=== PATIENT | male | born 1940 | race Caucasian/White ===

== ENCOUNTER 2017-04-05 06:25 | Emergency (ER) | payer OTHER ==
[2017-04-05 06:58] VITALS: BMI 24.2
[2017-04-05] MEDS ORDERED: ONDANSETRON 4 MG/2 ML VIAL IVPB ONE (07:36)
[2017-04-05] MEDS ORDERED: SODIUM CHLORIDE 1,000 ML IV STA (07:36)
--- NOTE | 2017-04-05 07:37 | PDOC ---
History of Present Illness - General History Source: Patient, Spouse Exam Limitations: No Limitations - History of Present Illness Initial Comments: 04/05/17 08:37 The patient is a 77 year old male, with significant past medical history of HTN , DM, BPH, and kidney stones, who presents to the emergency room complaining of weakness, lightheadedness, and nausea starting this morning approximately 5 hours ago. The patient explains the he felt lightheaded like he was going to pass out,which brought him into the ED. He states that he does not feel like the room is spinning. Denies fever, chills, vomiting. Denies sick contacts, recent illness. Denies any urinary symptoms. Denies chest pain, SOB. PCP: Dr. Clementine Reyna <Malia Lawson - Last Filed: 04/05/17 08:37> - General History Source: Patient Exam Limitations: No Limitations <Theodore Noriega - Last Filed: 04/05/17 10:31> - General Chief Complaint: Lightheaded Stated Complaint: ABD PAIN,DIZZINESS Time Seen by Provider: 04/05/17 07:19 Past History <Malia Lawson - Last Filed: 04/05/17 08:37> - Past Medical History Anemia: No Asthma: No Cancer: No Cardiac Disorders: No CVA: No COPD: No CHF: No Dementia: Yes (JUST STARTING) Diabetes: Yes GI Disorders: No Disorders: Yes (KIDNEY STONES) HTN: Yes Hypercholesterolemia: Yes Kidney Stones: Yes Liver Disease: No Seizures: No Thyroid Disease: No - Surgical History Abdominal Surgery: No Appendectomy: No Cardiac Surgery: No Cholecystectomy: No Lung Surgery: No Neurologic Surgery: No Orthopedic Surgery: No - Suicide/Smoking/Psychosocial Hx Smoking History: Never smoked Have you smoked in the past 12 months: No Information on smoking cessation initiated: No Hx Alcohol Use: No Drug/Substance Use Hx: No Substance Use Type: None Hx Substance Use Treatment: No <Theodore Noriega - Last Filed: 04/05/17 10:31> - Past Medical History Allergies/Adverse Reactions: Allergies Allergy/AdvReac Type Severity Reaction Status Date / Time No Known Drug Allergies Allergy Verified 04/05/17 06:56 Home Medications: Ambulatory Orders Aspirin [ASA -] 81 mg PO DAILY 03/30/15 Atenolol [Tenormin] 50 mg PO DAILY 03/30/15 Cyanocobalamin [Vitamin B12 -] 1,000 mcg PO DAILY 03/30/15 Insulin Glargine,Hum.rec.anlog [Lantus (10mL VIAL) -] 30 units SQ HS 03/30/15 Losartan Potassium 100 mg PO DAILY 03/30/15 Ubidecarenone/Vit E Acetate [Co Q-10 100 mg Softgel] 1 each PO DAILY 03/30/15 Donepezil HCl [Aricept] 23 mg PO DAILY 01/19/16 Ezetimibe/Simvastatin [Vytorin 10-20 mg Tablet] 1 tab PO DAILY 01/19/16 Memantine HCl [Namenda -] 5 mg PO DAILY 01/19/16 Saxagliptin HCl [Onglyza] 2.5 mg PO DAILY 01/19/16 Allopurinol [Zyloprim -] 100 mg PO DAILY 04/05/17 Ondansetron HCl [Zofran] 4 mg PO Q8H PRN #12 tablet 04/05/17 Review of Systems - Review of Systems Able to Perform ROS?: Yes Comments:: 04/05/17 08:51 GENERAL/CONSTITUTIONAL: +lightheadedness, weakness. No fever or chills. HEAD, EYES, EARS, NOSE AND THROAT: No change in vision. No ear pain or discharge. No sore throat. CARDIOVASCULAR: No chest pain or shortness of breath. RESPIRATORY: No cough, wheezing, or hemoptysis. GASTROINTESTINAL: +nausea. No vomiting, diarrhea or constipation. GENITOURINARY: No dysuria, frequency, or change in urination. MUSCULOSKELETAL: No joint or muscle swelling or pain. No neck or back pain. SKIN: No rash NEUROLOGIC: No headache, vertigo, loss of consciousness, or change in strength/ sensation. ENDOCRINE: No increased thirst. No abnormal weight change. HEMATOLOGIC/LYMPHATIC: No anemia, easy bleeding, or history of blood clots. ALLERGIC/IMMUNOLOGIC: No hives or skin allergy. <Malia Lawson - Last Filed: 04/05/17 08:37> *Physical Exam - Vital Signs Last Vital Signs Temp Pulse Resp BP Pulse Ox 67 14 117/64 100 04/05/17 06:56 04/05/17 06:56 04/05/17 06:56 04/05/17 06:56 - Physical Exam Comments: 04/05/17 08:51 GENERAL: Awake, alert, and fully oriented, in no acute distress HEAD: No signs of trauma EYES: PERRLA, EOMI, sclera anicteric, conjunctiva clear ENT: Auricles normal inspection, hearing grossly normal, nares patent, oropharynx clear without exudates. Moist mucosa NECK: Normal ROM, supple, no lymphadenopathy, JVD, or masses LUNGS: Breath sounds equal, clear to auscultation bilaterally. No wheezes, and no crackles HEART: Regular rate and rhythm, normal S1 and S2, no murmurs, rubs or gallops ABDOMEN: Soft, nontender, normoactive bowel sounds. No guarding, no rebound. No masses EXTREMITIES: Normal range of motion, no edema. No clubbing or cyanosis. No cords, erythema, or tenderness NEUROLOGICAL: Cranial nerves II through XII grossly intact. Normal speech, normal gait SKIN: Warm, Dry, normal turgor, no rashes or lesions noted. <Malia Lawson - Last Filed: 04/05/17 08:37> - Vital Signs Last Vital Signs Temp Pulse Resp BP Pulse Ox 67 14 117/64 100 04/05/17 06:56 04/05/17 06:56 04/05/17 06:56 04/05/17 06:56 <Theodore Noriega - Last Filed: 04/05/17 10:31> Heart Score/ECG Review #1 ECG reviewed & interpreted by me at: 07:40 04/05/17 08:31 NSR 89, no std/gloria, T wave flat I, TWI avL. ST flat V4-V6, QTC 473 msec <Theodore Noriega - Last Filed: 04/05/17 10:31> ED Treatment Course - LABORATORY CBC & Chemistry Diagram: 04/05/17 07:52 04/05/17 07:52 - ADDITIONAL ORDERS Additional order review: Laboratory Results 04/05/17 07:52 Urine Color Yellow Urine Appearance Cloudy Urine pH 5.0 Urine Protein 2+ H Urine Glucose (UA) 1+ H Urine Ketones Negative Urine Blood Negative Urine Nitrite Negative Urine Bilirubin Negative Urine Urobilinogen Negative - Medications Given in the ED: ED Medications Discontinued Medications Generic Name Dose Route Start Last Admin Trade Name Freq PRN Reason Stop Dose Admin Sodium Chloride 1,000 mls @ 1,000 mls/hr 04/05/17 07:36 04/05/17 08:01 Normal Saline - IV 04/05/17 08:35 1,000 mls/hr ASDIR STA Administration Ondansetron HCl 4 mg 04/05/17 07:36 04/05/17 08:02 Zofran Injection IVPB 04/05/17 07:37 4 mg ONCE ONE Administration <Malia Lawson - Last Filed: 04/05/17 08:37> - LABORATORY CBC & Chemistry Diagram: 04/05/17 07:52 04/05/17 09:15 <Theodore Noriega - Last Filed: 04/05/17 10:31> Medical Decision Making - Medical Decision Making 04/05/17 08:29 A portion of this note was written by my scribe, under my supervision. Vital Signs Temp Pulse Resp BP Pulse Ox 67 14 117/64 100 04/05/17 06:56 04/05/17 06:56 04/05/17 06:56 04/05/17 06:56 77 year old M c/ hx of poorly controlled DM p/w abdominal cramping and nausea. Was well yesterday and noted today to have nausea and generalized weakness and lightheadedness. Denies fevers, vomiting, diarrhea, dysuria, chest pain, SOB. Differential includes viral gastroenteritis vs. less likely acute abdominal pathology, cardiac. Labs, IVF, zofran, and reassess. 04/05/17 10:22 CBC, BMP 04/05/17 07:52 04/05/17 09:15 CMP Sodium 139 mmol/L (136-145) 04/05/17 09:15 Potassium 4.0 mmol/L (3.5-5.1) 04/05/17 09:15 Chloride 107 mmol/L (98-107) 04/05/17 09:15 Carbon Dioxide 24 mmol/L (21-32) 04/05/17 09:15 Anion Gap 8 (8-16) 04/05/17 09:15 BUN 17 mg/dL (7-18) 04/05/17 09:15 Creatinine 1.2 mg/dL (0.7-1.3) 04/05/17 09:15 Creat Clearance w eGFR 59.02 (>60) 04/05/17 09:15 Random Glucose 184 mg/dL (74-106) H D 04/05/17 09:15 Calcium 8.5 mg/dL (8.5-10.1) 04/05/17 09:15 Total Bilirubin 0.4 mg/dL (0.2-1.0) 04/05/17 09:15 AST 40 U/L (15-37) H D 04/05/17 09:15 ALT 80 U/L (12-78) H D 04/05/17 09:15 Alkaline Phosphatase 104 U/L (45-117) 04/05/17 09:15 Creatine Kinase 190 IU/L (39-308) 04/05/17 09:15 Troponin I < 0.02 ng/ml (0.00-0.05) 04/05/17 09:15 Total Protein 7.0 g/dl (6.4-8.2) 04/05/17 09:15 Albumin 3.6 g/dl (3.4-5.0) 04/05/17 09:15 Lipase 172 U/L (73-393) 04/05/17 09:15 Urine Test Results Urine Color Yellow 04/05/17 07:52 Urine Appearance Cloudy 04/05/17 07:52 Urine pH 5.0 (5.0-8.0) 04/05/17 07:52 Urine Protein 2+ (NEGATIVE) H 04/05/17 07:52 Urine Glucose (UA) 1+ (NEGATIVE) H 04/05/17 07:52 Urine Ketones Negative (NEGATIVE) 04/05/17 07:52 Urine Blood Negative (NEGATIVE) 04/05/17 07:52 Urine Nitrite Negative (NEGATIVE) 04/05/17 07:52 Urine Bilirubin Negative (NEGATIVE) 04/05/17 07:52 Urine RBC 1 /hpf (0-3) 04/05/17 07:52 Urine WBC 2 /hpf (3-5) 04/05/17 07:52 Ur Epithelial Cells Rare /hpf (FEW) 04/05/17 07:52 Urine Mucus Rare 04/05/17 07:52 Patient reports feeling significantly better. Labs reviewed demonstrates no acute findings. Patient tolerated by mouth. Any possible this is viral gastritis. We will prescription for Zofran and the patient of the prior care physician. Return precautions given severe pain or persistent vomiting. I discussed the physical exam findings, ancillary test results and final diagnoses with the patient. I answered all of the patient's questions. The patient was satisfied with the care received and felt comfortable with the discharge plan and treatment plan. The patient will call their primary care physician within 24 hours to arrange follow-up and will return to the Emergency Department with any new, persistant or worsening symptoms. <Theodore Noriega - Last Filed: 04/05/17 10:31> *DC/Admit/Observation/Transfer - Attestations Scribe Attestion: 04/05/17 08:52 Documentation prepared by MARANDA Junior, acting as medical laboratory technical officer for Theodore Noriega MD. <Malia Lawson - Last Filed: 04/05/17 08:37> - Discharge Dispostion Admit: No <Theodore Noriega - Last Filed: 04/05/17 10:31> Diagnosis at time of Disposition: Nausea Gastritis Qualifiers: Gastritis type: unspecified gastritis Chronicity: acute Gastritis bleeding: without bleeding Qualified Code(s): K29.00 - Acute gastritis without bleeding - Discharge Dispostion Disposition: HOME Condition at time of disposition: Improved - Prescriptions Prescriptions: Ondansetron HCl [Zofran] 4 mg PO Q8H PRN #12 tablet PRN Reason: Nausea - Referrals Referrals: Zari Mistry MD [Primary Care Provider] - - Patient Instructions Printed Discharge Instructions: DI for Gastritis Additional Instructions: Your workup shows up no acute findings. Please take 4 mg zofran every 8 hours as needed for nausea. It may take several days before your symptoms improve. Drink plenty of fluids and rest. Follow up with your doctor.
[2017-04-05] MEDS ORDERED: ONDANSETRON 4 MG/2 ML VIAL ONE (07:54)
[2017-04-05 08:17] LABS: MCH 28.2 pg (25.7-33.7); MCHC 32.9 g/dl (32.0-35.9); MEAN CELL VOLUME 85.7 fl (80-96); MEAN PLT VOLUME 10.4 fl (7.5-11.1); NEUTROPHILS 56.3 % (42.8-82.8); PLATELET COUNT 186 K/MM3 (134-434); RDW 14.6 % (11.9-15.9); WHITE BLOOD COUNT 5.5 K/mm3 (4.0-10.0)
[2017-04-05 08:22] LABS: URINE APPEARANCE CLOUDY; URINE BILIRUBIN NEGATIVE (NEGATIVE); URINE BLOOD NEGATIVE (NEGATIVE); URINE COLOR YELLOW; URINE GLUCOSE (UA) 1+ (NEGATIVE); URINE KETONE NEGATIVE (NEGATIVE); URINE LEUK ESTERASE NEGATIVE (NEGATIVE); URINE NITRITE NEGATIVE (NEGATIVE); URINE UROBILINOGEN NEGATIVE mg/dL (0.2-1.0)
[2017-04-05 08:30] LABS: URINE PROTEIN 2+ (NEGATIVE)
[2017-04-05 09:12] LABS: URIC ACID CRYSTALS RARE /hpf (NONE SEEN); URINE MUCUS RARE; URINE RBC 1 /hpf (0-3); URINE WBC 2 /hpf (3-5)
[2017-04-05 09:55] LABS: ALBUMIN 3.6 g/dl (3.4-5.0); ANION GAP 8 (8-16); BILIRUBIN,TOTAL 0.4 mg/dL (0.2-1.0); CALCIUM 8.5 mg/dL (8.5-10.1); CO2 24 mmol/L (21-32); CREATININE 1.2 mg/dL (0.7-1.3); GLUCOSE,RANDOM 184 mg/dL (74-106); SGOT/AST 40 U/L (15-37); SGPT/ALT 80 U/L (12-78)
[2017-04-05 09:58] LABS: ALK PHOS 104 U/L (45-117); CPK 190 IU/L (39-308); TROPONIN I < 0.02 ng/ml (0.00-0.05)
[2017-04-05 10:57] VITALS: BP 148/70; PULSE 66
[2017-04-05 11:27] VITALS: TEMP 97.8
--- NOTE | 2017-04-05 20:01 | EKG ---
Test Reason : Blood Pressure : / mmHG Vent. Rate : 069 BPM Atrial Rate : 069 BPM P-R Int : 178 ms QRS Dur : 086 ms QT Int : 442 ms P-R-T Axes : 055 056 094 degrees QTc Int : 473 ms NORMAL SINUS RHYTHM NONSPECIFIC ST AND T WAVE ABNORMALITY PROLONGED QT ABNORMAL ECG WHEN COMPARED WITH ECG OF 10-DEC-2015 15:25, NONSPECIFIC T WAVE ABNORMALITY, WORSE IN LATERAL LEADS QT HAS LENGTHENED REPEAT EKG IF CLINICALLY INDICATED Confirmed by VENUS STEPHENSON MD ([id number]) on 04/05/2017 8:01:16 PM Referred By: Confirmed By:VENUS STEPHENSON MD
== END 2017-04-05 11:00 | disposition home or self-care (01) ==
LOC: JER 06:25
PROC: 3E033GC Introduction of Other Therapeutic Substance into Peripheral Vein, Percutaneous Approach (ICD-10-PCS; principal; 2017-04-05)
DX: K29.00 Acute gastritis without bleeding (principal); F03.90 Unspecified dementia, unspecified severity, without behavioral disturbance, psychotic disturbance, mood disturbance, and anxiety; I10 Essential (primary) hypertension; E11.9 Type 2 diabetes mellitus without complications; Z79.4 Long term (current) use of insulin; N40.0 Benign prostatic hyperplasia without lower urinary tract symptoms; Z87.442 Personal history of urinary calculi
CPT/HCPCS: 36415; 80053; 81003; 81015; 82553; 83690; 84484; 85025; 87086; 93005; 93010; 96374; 99283-25

== ENCOUNTER 2017-06-08 21:23 | Emergency (ER) | payer OTHER ==
[2017-06-08 21:34] VITALS: BP 147/64; PULSE 84; TEMP 97.8; BMI 25.0
--- NOTE | 2017-06-08 21:34 | PDOC ---
Rapid Medical Evaluation Chief Complaint: Nasal Bleeding Time Seen by Provider: 06/08/17 21:29 Medical Evaluation: Allergies Allergy/AdvReac Type Severity Reaction Status Date / Time No Known Drug Allergies Allergy Verified 04/05/17 06:56 06/08/17 21:30 I have performed a brief in-person evaluation of this patient. The patient presents with a chief complaint of: nosebleed x 5-10 minutes, feels lightheaded, denies dizziness/palpitations/CP/SOB, denies use of anticoagulants but on aspirin, hx of HTN, HLD, and IDDM Pertinent physical exam findings: no active bleeding I have ordered the following: CBC, CMP The patient will proceed to the ED for further evaluation.
[2017-06-08 21:53] LABS: BASOPHIL 0.9 % (0-2.0); EOSINOPHIL 5.9 % (0-4.5); MCH 28.7 pg (25.7-33.7); MCHC 33.1 g/dl (32.0-35.9); MEAN CELL VOLUME 86.6 fl (80-96); MEAN PLT VOLUME 9.6 fl (7.5-11.1); NEUTROPHILS 43.1 % (42.8-82.8); PLATELET COUNT 193 K/MM3 (134-434); RDW 14.8 % (11.9-15.9); WHITE BLOOD COUNT 6.1 K/mm3 (4.0-10.0)
--- NOTE | 2017-06-08 22:09 | PDOC ---
History of Present Illness - General Chief Complaint: Nasal Bleeding Stated Complaint: NASAL BLEEDING Time Seen by Provider: 06/08/17 21:29 History Source: Patient Exam Limitations: No Limitations - History of Present Illness Initial Comments: 06/08/17 22:04 77-year-old male brought in by for evaluation of nasal bleeding which occurred while patient was resting at home. Patient with history of dementia and unable to recall the events prior to the incident. As per patient had bright red blood noted from his left naris which he approximated to last approximately 10 minutes. Patient unable to recall length of symptoms. Patient currently denies headache, dizziness, chest pain, shortness of breath. Patient currently on baby aspirin denies any previous epistaxis. Patient also currently denies difficulty breathing. Timing/Duration: 1-3 hours Severity: mild Associated Symptoms: reports: denies symptoms Past History - Travel Traveled outside of the country in the last 30 days: No - Past Medical History Allergies/Adverse Reactions: Allergies Allergy/AdvReac Type Severity Reaction Status Date / Time No Known Drug Allergies Allergy Verified 06/08/17 21:34 Home Medications: Ambulatory Orders Aspirin [ASA -] 81 mg PO DAILY 03/30/15 Atenolol [Tenormin] 50 mg PO DAILY 03/30/15 Cyanocobalamin [Vitamin B12 -] 1,000 mcg PO DAILY 03/30/15 Insulin Glargine,Hum.rec.anlog [Lantus (10mL VIAL) -] 30 units SQ HS 03/30/15 Losartan Potassium 100 mg PO DAILY 03/30/15 Ubidecarenone/Vit E Acetate [Co Q-10 100 mg Softgel] 1 each PO DAILY 03/30/15 Donepezil HCl [Aricept] 23 mg PO DAILY 01/19/16 Ezetimibe/Simvastatin [Vytorin 10-20 mg Tablet] 1 tab PO DAILY 01/19/16 Memantine HCl [Namenda -] 5 mg PO DAILY 01/19/16 Saxagliptin HCl [Onglyza] 2.5 mg PO DAILY 01/19/16 Allopurinol [Zyloprim -] 100 mg PO DAILY 04/05/17 Ondansetron HCl [Zofran] 4 mg PO Q8H PRN #12 tablet 04/05/17 Anemia: No Asthma: No Cancer: No Cardiac Disorders: No CVA: No COPD: No CHF: No Dementia: Yes (JUST STARTING) Diabetes: Yes GI Disorders: No Disorders: Yes (KIDNEY STONES) HTN: Yes Hypercholesterolemia: Yes Kidney Stones: Yes Liver Disease: No Seizures: No Thyroid Disease: No - Surgical History Abdominal Surgery: No Appendectomy: No Cardiac Surgery: No Cholecystectomy: No Lung Surgery: No Neurologic Surgery: No Orthopedic Surgery: No - Suicide/Smoking/Psychosocial Hx Smoking History: Never smoked Have you smoked in the past 12 months: No If you are a former smoker, when did you quit?: 20 yrs ago Information on smoking cessation initiated: No Hx Alcohol Use: No Drug/Substance Use Hx: No Substance Use Type: None Hx Substance Use Treatment: No Patient Lives Alone: No Lives with/in: spouse/SO Review of Systems - Review of Systems Able to Perform ROS?: Yes Constitutional: No: Symptoms Reported HEENTM: Yes: Nose Bleeding Respiratory: No: Symptoms reported Cardiac (ROS): No: Symptoms Reported ABD/GI: No: Symptoms Reported : No: Symptoms Reported Musculoskeletal: No: Symptoms Reported Integumentary: No: Symptoms Reported Neurological: No: Headache, Dizziness Endocrine: No: Symptoms Reported Hematologic/Lymphatic: No: Symptoms Reported *Physical Exam - Vital Signs Last Vital Signs Temp Pulse Resp BP Pulse Ox 97.8 F 84 18 147/64 99 06/08/17 21:27 06/08/17 21:27 06/08/17 21:27 06/08/17 21:27 06/08/17 21:27 - Physical Exam General Appearance: Yes: Nourished, Appropriately Dressed. No: Apparent Distress HEENT: positive: EOMI, ART, TMs Normal, Pharynx Normal (no blood to posterior soft palate), Other (noted dried blood to left nare. No active bleeding). negative: Pale Conjunctivae Neck: positive: Supple Respiratory/Chest: positive: Lungs Clear, Normal Breath Sounds. negative: Respiratory Distress, Accessory Muscle Use Cardiovascular: positive: Regular Rhythm, Regular Rate. negative: Murmur Integumentary: positive: Normal Color, Warm, Moist Neurologic: positive: Normal Mood/Affect, Motor Strength 5/5 (ambulatory) ED Treatment Course - LABORATORY CBC & Chemistry Diagram: 06/08/17 21:40 06/08/17 21:40 Medical Decision Making - Medical Decision Making 06/08/17 22:19 Pt with resolved Patient here for resolved epistaxis. Patient ordered for CBC from rapid medical evaluation advance practitioner. No acute findings on exam. Will reassess once labs are resulted. Patient and given discharge instructions *DC/Admit/Observation/Transfer Diagnosis at time of Disposition: Anterior epistaxis - Discharge Dispostion Disposition: HOME Condition at time of disposition: Improved - Referrals Referrals: STAFF,NOT ON [Primary Care Provider] - - Patient Instructions Printed Discharge Instructions: DI for Nosebleed Additional Instructions: Please avoid manipulation and no swelling for the next 2 days. You may use them humidifying the room at night or use petroleum around the opening of nares for moisturization. If symptoms recur please return to the ED. - Post Discharge Activity
== END 2017-06-08 22:27 | disposition home or self-care (01) ==
LOC: JERFT 21:23
DX: R04.0 Epistaxis (principal); I10 Essential (primary) hypertension; E10.9 Type 1 diabetes mellitus without complications; Z79.4 Long term (current) use of insulin; E78.00 Pure hypercholesterolemia, unspecified; F03.90 Unspecified dementia, unspecified severity, without behavioral disturbance, psychotic disturbance, mood disturbance, and anxiety; Z87.442 Personal history of urinary calculi
CPT/HCPCS: 36415; 85025; 99281-25

== ENCOUNTER 2017-08-16 12:47 | Observation (INO) | payer OTHER ==
--- NOTE | 2017-08-16 13:49 | PDOC ---
History of Present Illness - General Chief Complaint: Chest Pain Stated Complaint: CHEST PAIN Time Seen by Provider: 08/16/17 13:24 - History of Present Illness Initial Comments: 08/16/17 14:36 The patient is a 77 year old male with a history of HTN, HLD, DM who presents for evaluation for chest pain. The patient states that he began experiencing sharp substernal chest pain yesterday evening. He reports that he continued to experience chest pain this morning that he describes as achy in nature and somewhat improved from yesterday evening, however he was concerned that his pain did not completely improve prompting his presentation to the ED today. He denies fevers, chills, SOB, abdominal pain, nausea, vomiting, or changes with urination or bowel movements. Past History - Past Medical History Allergies/Adverse Reactions: Allergies Allergy/AdvReac Type Severity Reaction Status Date / Time No Known Drug Allergies Allergy Verified 08/16/17 12:53 Home Medications: Ambulatory Orders Allopurinol [Zyloprim -] 100 mg PO DAILY 08/16/17 Aspirin 81 mg PO DAILY 08/16/17 Atenolol [Tenormin -] 50 mg PO HS 08/16/17 Cholecalciferol (Vitamin D3) [Vitamin D3 -] 1,000 unit PO DAILY 08/16/17 Cyanocobalamin (Vitamin B-12) [Vitamin B12] 1,000 mcg PO DAILY 08/16/17 Donepezil HCl 23 mg PO DAILY 08/16/17 Insulin Glargine,Hum.rec.anlog [Lantus] 30 unit SQ HS 08/16/17 Losartan Potassium 100 mg PO HS 08/16/17 Saxagliptin HCl [Onglyza] 2.5 mg PO DAILY 08/16/17 Ubidecarenone [Coenzyme Q-10] 100 mg PO DAILY 08/16/17 Anemia: No Asthma: No Cancer: No Cardiac Disorders: No CVA: No COPD: No CHF: No DVT: No Dementia: Yes (JUST STARTING) Diabetes: Yes GI Disorders: No Disorders: Yes (KIDNEY STONES) HTN: Yes Hypercholesterolemia: Yes Kidney Stones: Yes Liver Disease: No Seizures: No Thyroid Disease: No - Surgical History Abdominal Surgery: No Appendectomy: No Cardiac Surgery: No Cholecystectomy: No Lung Surgery: No Neurologic Surgery: No Orthopedic Surgery: No - Suicide/Smoking/Psychosocial Hx Smoking History: Never smoked Have you smoked in the past 12 months: No If you are a former smoker, when did you quit?: 20 yrs ago Hx Alcohol Use: No Drug/Substance Use Hx: No Substance Use Type: None Hx Substance Use Treatment: No Review of Systems - Review of Systems Comments:: 08/16/17 14:39 Constitutional: No fevers, chills, fatigue, malaise HEENT: No Rhinorrhea, nasal congestion, visual changes Cardiovascular: Chest pain. No syncope, palpitations, lightheadedness Respiratory: No Cough, SOB, Hemoptysis, Gastrointestinal: No Abdominal pain, Nausea, Vomiting, Constipation, Diarrhea, Melena Genitourinary: No Dysuria, Frequency, Urgency, Hesitancy, Hematuria, Flank pain Musculoskeletal: No Myalgia, arthralgia Skin: No rashes, itching, bruising, pallor Neurologic: No Headache, Dizziness, Numbness, Weakness, or Tingling Psychiatric: No Hallucinations. No SI or HI *Physical Exam - Vital Signs Last Vital Signs Temp Pulse Resp BP Pulse Ox 98.0 F 68 148 H 178/77 100 08/16/17 12:53 08/16/17 12:53 08/16/17 12:53 08/16/17 12:53 08/16/17 12:53 - Physical Exam Comments: 08/16/17 14:39 General Appearance: Nourished. No Apparent Distress HEENT: EOMI, ART. No Pharyngeal Erythema, Tonsillar Exudate, Tonsillar Erythema Neck: No Cervical Lymphadenopathy Respiratory/Chest: Lungs Clear, Normal Breath Sounds. No Crackles, Rales, Rhonchi, Wheezing Cardiovascular: Regular Rhythm, Regular Rate. No Murmur, Gallops, Rubs Gastrointestinal/Abdominal: Normal Bowel Sounds, Soft. No Guarding, Rebound, Tenderness Musculoskeletal: No CVA Tenderness Extremity: Normal Capillary Refill Integumentary: Normal Color, Dry, Warm Neurologic: Fully Oriented, Alert, Normal Mood/Affect, Normal Response, Heart Score/ECG Review #1 ECG reviewed & interpreted by me at: 14:53 General ECG Interpretation: Sinus Rhythm, Normal Rate, Normal Intervals, No acute ischemic changes ED Treatment Course - LABORATORY CBC & Chemistry Diagram: 08/16/17 14:00 08/16/17 14:00 Medical Decision Making - Medical Decision Making 08/16/17 14:40 The patient is a 77 year old male with a history of HTN, HLD, DM who presents for evaluation for chest pain. Differential includes but is not limited to: ACS , Musculoskeletal, arrhythmia, pneumonia, metabolic derangement. Given the patient's physical exam and history, it is possible that his symptoms are musculoskeletal in nature. However, given his risk factors, it is reasonable to evaluate for other etiologies and we will send a cbc, cmp, troponin, ekg, and chest plain film to evaluate further. We will treat him with tylenol here in the ED and continue to monitor and reassess. 08/16/17 18:13 CBC, cmp, troponin, chest plain film are unremarkable. However given the patient's risk factors, we believe that he requires tele observation and possible stress testing for further management of his symptoms especially given his continued chest pain here in the ED. We discussed the plan with the patient who is agreeable with the plan. We discussed the case with the hospitalist team who accepted the patient for admission. We discussed the case with Dr. Hernandez who has been made aware of the patient. *DC/Admit/Observation/Transfer Diagnosis at time of Disposition: Chest pain Qualifiers: Chest pain type: unspecified Qualified Code(s): R07.9 - Chest pain, unspecified - Discharge Dispostion Condition at time of disposition: Guarded Admit: Yes - Referrals - Patient Instructions - Post Discharge Activity
[2017-08-16 14:19] LABS: EOS % 4.9 % (0-4.5); HEMATOCRIT 42.7 % (35.4-49); HEMOGLOBIN 14.3 GM/dL (11.7-16.9); LYMPH % 29.4 % (8-40); MCHC 33.4 g/dl (32.0-35.9); MEAN CELL VOLUME 86.6 fl (80-96); MEAN PLT VOLUME 10.2 fl (7.5-11.1); MONO % 9.5 % (3.8-10.2); NEUT % 55.2 % (42.8-82.8); PLATELET COUNT 197 K/MM3 (134-434); RBC 4.93 M/mm3 (4.00-5.60); RDW 14.4 % (11.9-15.9); WHITE BLOOD COUNT 5.7 K/mm3 (4.0-10.0)
--- NOTE | 2017-08-16 14:42 | PDOC ---
Attending Attestation - Resident Resident Name: Rojelio Guardado - ED Attending Attestation I have performed the following: I have examined & evaluated the patient, The case was reviewed & discussed with the resident, I agree w/resident's findings & plan, Exceptions are as noted - HPI HPI: 08/16/17 14:41 77y M hx of htn, hl, dm, presents with complaint of chest pain. Described as sharp, nonradiating since last night. No associated sob, cough, fever/c, n/v, abd pain, leg swelling, travel history. Denies any exerbating sypmtoms such as exertion/movements. - Physicial Exam PE: genera: well appearing, no distress lungs: cta cardiac: rrr, no m/r/g abd: soft nontender - Medical Decision Making 08/16/17 17:26 77y M multiple risk factors presents with substernal chest pain that is nonradiating without any numbness/tingling/weakness of the extermities, no sob/ cough/hemoptysis, leg edema. is nonexertional. Symptoms not exactly classic for ACS but due to risk factors and as pain is still persistent, concern for acs HEART score of 5 will observe with cardiology consult for further risk stratification pt still with mild chest pain will give ntg Heart Score/ECG Review - History History: Slightly suspicious - Electrocardiogram EKG: Non specific repolarization disturbance - Age Age: >/= 65 - Risk Factors Risk Factors Heart Score: Yes Hx Hypercholesterolemia, Yes Hx Hypertension, Yes Hx Diabetes Based on the list above the patient has:: >/=3 risk factors or Hx atherosclerotic disease - Troponin Troponin: </= normal limit - Score Heart Score - Total: 5 - ECG Impressions Comment:: 08/16/17 17:27 Twelve-lead EKG was performed and reviewed by me. There is normal sinus rhythm with a normal rate. Rate of 60 The axis is normal. The intervals are normal. There is normal R wave progression Nonspecific S T wave abnormality
[2017-08-16] MEDS ORDERED: ACETAMINOPHEN 500 MG TABLET (FP) PO ONE (14:47)
[2017-08-16 14:48] LABS: ALBUMIN 3.5 g/dl (3.4-5.0); ANION GAP 7 (8-16); BILIRUBIN,TOTAL 0.5 mg/dL (0.2-1.0); BLOOD UREA NITROGEN 23 mg/dL (7-18); CALCIUM 7.9 mg/dL (8.5-10.1); CHLORIDE 106 mmol/L (98-107); CO2 27 mmol/L (21-32); CREATININE 1.3 mg/dL (0.7-1.3); GLUCOSE,RANDOM 110 mg/dL (74-106); SODIUM 140 mmol/L (136-145)
[2017-08-16 14:50] LABS: ALK PHOS 111 U/L (45-117)
[2017-08-16 14:54] LABS: POTASSIUM 4.3 mmol/L (3.5-5.1); TOT PROT 6.9 g/dl (6.4-8.2)
[2017-08-16] MEDS ORDERED: ACETAMINOPHEN 325 MG TABLET (FP) ONE (14:54)
[2017-08-16 14:55] LABS: SGOT/AST 29 U/L (15-37); SGPT/ALT 44 U/L (12-78)
--- NOTE | 2017-08-16 16:34 | EKG ---
Test Reason : Blood Pressure : / mmHG Vent. Rate : 060 BPM Atrial Rate : 060 BPM P-R Int : 166 ms QRS Dur : 076 ms QT Int : 412 ms P-R-T Axes : 050 056 091 degrees QTc Int : 412 ms NORMAL SINUS RHYTHM NONSPECIFIC ST AND T WAVE ABNORMALITY ABNORMAL ECG WHEN COMPARED WITH ECG OF 05-APR-2017 07:38, NO SIGNIFICANT CHANGE WAS FOUND Confirmed by MD Lincoln, Valente ([id number]) on 08/16/2017 4:34:01 PM Referred By: Confirmed By:Valente Stark MD
[2017-08-16] MEDS ORDERED: ASPIRIN 81 MG CHEWABLE TABLETS PO ONE (17:27)
[2017-08-16] MEDS ORDERED: NITROGLYCERIN SUBLINGUAL 1/150 0.4 MG TAB SL ONE (17:36)
[2017-08-16] MEDS ORDERED: ASPIRIN 325 MG TABLET ONE (17:37)
[2017-08-16] MEDS ORDERED: NITROGLYCERIN SUBLINGUAL 1/150 0.4 MG TAB ONE (17:59)
--- NOTE | 2017-08-16 18:40 | HP ---
CHIEF COMPLAINT: Cannot recall why he came to ED. PCP: HISTORY OF PRESENT ILLNESS: 77 year-old male with a PMH significant for HTN, HLD, IDDM, renal calculi, BPH, CKD, and dementia. Presented to the ED with a complaint of chest pain since the previous evening. He described his pain as sharp, nonradiating without associated SOB, HINDS, or palpitations. On admission, patient could not recall why he came to the ED. He said he has cataracts and perhaps that was the reason. He denied chest pain of any kind. He had no complaints. He said he walks for one hour every day six days a week. ER course was notable for: (1) Trop neg x 1 (2) ASA 325mg, nitro SL x 1, Tylenol 1g Recent Travel: No PAST MEDICAL HISTORY: Hypertension Hyperlipidemia IDDM Renal calculi BPH CKD Dementia PAST SURGICAL HISTORY: None reported Social History: Smoking: quit 20 years ago Alcohol: no Drugs: no Family History: Allergies No Known Drug Allergies Allergy (Verified 08/16/17 12:53) HOME MEDICATIONS: Home Medications Medication Instructions Recorded Allopurinol [Zyloprim -] 100 mg PO DAILY 08/16/17 Aspirin 81 mg PO DAILY 08/16/17 Atenolol [Tenormin -] 50 mg PO HS 08/16/17 Cholecalciferol (Vitamin D3) 1,000 unit PO DAILY 08/16/17 [Vitamin D3 -] Cyanocobalamin (Vitamin B-12) 1,000 mcg PO DAILY 08/16/17 [Vitamin B12] Donepezil HCl 23 mg PO DAILY 08/16/17 Insulin Glargine,Hum.rec.anlog 30 unit SQ HS 08/16/17 [Lantus] Losartan Potassium 100 mg PO HS 08/16/17 Saxagliptin HCl [Onglyza] 2.5 mg PO DAILY 08/16/17 Ubidecarenone [Coenzyme Q-10] 100 mg PO DAILY 08/16/17 REVIEW OF SYSTEMS CONSTITUTIONAL: Absent: fever, chills, diaphoresis, generalized weakness, malaise, loss of appetite, weight change HEENT: Absent: rhinorrhea, nasal congestion, throat pain, throat swelling, difficulty swallowing, mouth swelling, ear pain, eye pain, visual changes CARDIOVASCULAR: Absent: chest pain, syncope, palpitations, irregular heart rate, lightheadedness , peripheral edema RESPIRATORY: Absent: cough, shortness of breath, dyspnea with exertion, orthopnea, wheezing, stridor, hemoptysis GASTROINTESTINAL: Absent: abdominal pain, abdominal distension, nausea, vomiting, diarrhea, constipation, melena, hematochezia GENITOURINARY: Absent: dysuria, frequency, urgency, hesitancy, hematuria, flank pain, genital pain MUSCULOSKELETAL: Absent: myalgia, arthralgia, joint swelling, back pain, neck pain SKIN: Absent: rash, itching, pallor HEMATOLOGIC/IMMUNOLOGIC: Absent: easy bleeding, easy bruising, lymphadenopathy, frequent infections ENDOCRINE: Absent: unexplained weight gain, unexplained weight loss, heat intolerance, cold intolerance NEUROLOGIC: Absent: headache, focal weakness or paresthesias, dizziness, unsteady gait, seizure, mental status changes, bladder or bowel incontinence PSYCHIATRIC: Absent: anxiety, depression, suicidal or homicidal ideation, hallucinations. PHYSICAL EXAMINATION Vital Signs - 24 hr 08/16/17 08/16/17 12:53 18:39 Temperature 98.0 F Pulse Rate 68 Pulse Rate [ 78 Left Radial] Respiratory 148 H 20 Rate Blood Pressure 178/77 Blood Pressure 170/70 [Left Arm] O2 Sat by Pulse 100 99 Oximetry (%) GENERAL: Awake, alert, and fully oriented, in no acute distress. HEAD: Normal with no signs of trauma. EYES: Pupils equal, round and reactive to light, extraocular movements intact, sclera anicteric, conjunctiva clear. No lid lag. EARS, NOSE, THROAT: Ears normal, nares patent, oropharynx clear without exudates. Moist mucous membranes. NECK: Normal range of motion, supple without lymphadenopathy, JVD, or masses. LUNGS: Breath sounds equal, clear to auscultation bilaterally. No wheezes, and no crackles. No accessory muscle use. HEART: Regular rate and rhythm, normal S1 and S2 without murmur, rub or gallop. ABDOMEN: Soft, nontender, not distended, normoactive bowel sounds, no guarding, no rebound, no masses. No hepatomegaly or splenomegaly. MUSCULOSKELETAL: Normal range of motion at all joints. No bony deformities or tenderness. No CVA tenderness. UPPER EXTREMITIES: 2+ pulses, warm, well-perfused. No cyanosis. No clubbing. No peripheral edema. LOWER EXTREMITIES: 2+ pulses, warm, well-perfused. No calf tenderness. No peripheral edema. NEUROLOGICAL: Cranial nerves II-XII intact. Normal speech. Normal gait. PSYCHIATRIC: Cooperative. Good eye contact. Appropriate mood and affect. SKIN: Warm, dry, normal turgor, no rashes or lesions noted, normal capillary refill. Laboratory Results - last 24 hr 08/16/17 08/16/17 14:00 14:00 WBC 5.7 RBC 4.93 Hgb 14.3 Hct 42.7 MCV 86.6 MCH 29.0 MCHC 33.4 RDW 14.4 Plt Count 197 MPV 10.2 Neutrophils % 55.2 D Lymphocytes % 29.4 D Monocytes % 9.5 Eosinophils % 4.9 H Basophils % 1.0 Sodium 140 Potassium 4.3 Chloride 106 Carbon Dioxide 27 Anion Gap 7 L BUN 23 H D Creatinine 1.3 Creat Clearance w eGFR 53.82 Random Glucose 110 H D Calcium 7.9 L Total Bilirubin 0.5 D AST 29 D ALT 44 D Alkaline Phosphatase 111 Creatine Kinase 302 Creatine Kinase Index 0.9 CK-MB (CK-2) 3.015 Troponin I < 0.02 Total Protein 6.9 Albumin 3.5 ASSESSMENT/PLAN 77 year-old male with a PMH significant for HTN, HLD, NIDDM, renal calculi, BPH , CKD, and dementia. Placed on observation for complaint of chest pain. Chest pain --trop neg x 1, two pending --ECG sinus rhythm @60; no significant changes from 04/05/17 --CXR unremarkable --echo ordered --NPO after midnight in event needs stress --cardiology consult --ASA, atenolol, nitro SL PRN Hypertension --BP elevated --continue losartan, atenolol Hyperlipidemia --not on statin NIDDM --Novolog sliding scale coverage Renal calculi --stable BPH --stable CKD --stable Dementia --continue donepezil FEN Fluids: PO intake adequate Electrolytes: replete as indicated Nutrition: low sodium; NPO after midnight DVT prophylaxis: oob, ambulation Dispo: continues to require observation. Full code. Visit type - Emergency Visit Emergency Visit: Yes ED Registration Date: 08/16/17 Care time: The patient presented to the Emergency Department on the above date and was hospitalized for further evaluation of their emergent condition. - New Patient This patient is new to me today: Yes Date on this admission: 08/17/17 - Critical Care Critical Care patient: No
[2017-08-16] MEDS ORDERED: NITROGLYCERIN SUBLINGUAL 1/150 0.4 MG TAB SL PRN (18:55)
[2017-08-16] MEDS ORDERED: ATENOLOL 50 MG TABLET (FP) PO SCH (22:00)
[2017-08-16] MEDS ORDERED: LOSARTAN POTASSIUM 100 MG TABLET PO SCH (22:00)
[2017-08-16] MEDS ORDERED: ATENOLOL 25 MG TABLET (FP) ONE (22:03)
[2017-08-16] MEDS ORDERED: LOSARTAN POTASSIUM 25 MG TABLET ONE (22:04)
[2017-08-16] MEDS ORDERED: INSULIN (NOVOLOG) ASPART 100 UNITS/ML 10ML VIAL SQ ONE (22:20)
[2017-08-16] MEDS: INSULIN SLIDING SCALE (NOVOLOG) 1 VIAL SQ SCH (22:26)
[2017-08-16] MEDS ORDERED: HEMOQUE TEST 1 EACH EACH ONE (23:45)
[2017-08-17] MEDS ORDERED: HEPARIN NA (PORCINE) 5,000 UNITS/ML 1ML VIAL ONE (06:11)
[2017-08-17] MEDS: HEPARIN NA (PORCINE) 5,000 UNITS/ML 1ML VIAL SQ SCH ×2 (06:14→16:12)
[2017-08-17] MEDS: INSULIN SLIDING SCALE (NOVOLOG) 1 VIAL SQ SCH ×3 (07:24→17:33)
[2017-08-17 07:28] LABS: BASO % 1.3 % (0-2.0); HEMATOCRIT 41.8 % (35.4-49); HEMOGLOBIN 13.5 GM/dL (11.7-16.9); LYMPH % 34.1 % (8-40); MCHC 32.2 g/dl (32.0-35.9); MEAN CELL VOLUME 86.9 fl (80-96); MEAN PLT VOLUME 10.1 fl (7.5-11.1); NEUT % 47.6 % (42.8-82.8); PLATELET COUNT 176 K/MM3 (134-434); RBC 4.81 M/mm3 (4.00-5.60); RDW 14.1 % (11.9-15.9)
[2017-08-17 07:48] LABS: CHLORIDE 107 mmol/L (98-107); POTASSIUM 4.3 mmol/L (3.5-5.1); SODIUM 142 mmol/L (136-145)
[2017-08-17 08:13] LABS: ALBUMIN 3.3 g/dl (3.4-5.0); ALK PHOS 112 U/L (45-117); ANION GAP 6 (8-16); BILIRUBIN,TOTAL 0.5 mg/dL (0.2-1.0); BLOOD UREA NITROGEN 20 mg/dL (7-18); CALCIUM 9.3 mg/dL (8.5-10.1); CO2 29 mmol/L (21-32); CREATININE 1.2 mg/dL (0.7-1.3); GLUCOSE,RANDOM 91 mg/dL (74-106); MAGNESIUM 2.2 mg/dL (1.8-2.4); SGOT/AST 27 U/L (15-37); SGPT/ALT 42 U/L (12-78)
[2017-08-17] MEDS ORDERED: CYANOCOBALAMIN 1,000 MCG TABLET (FP) PO SCH (10:00)
[2017-08-17] MEDS ORDERED: PATIENT'S OWN MEDICATION (NON-FORMULARY) (Donepezil Hcl [Donepezil Hcl] 23 MG) PO SCH (10:00)
[2017-08-17] MEDS ORDERED: ASPIRIN 81 MG CHEWABLE TABLETS PO SCH (10:00)
[2017-08-17] MEDS ORDERED: ALLOPURINOL 100 MG TABLET (FP) PO SCH (10:00)
[2017-08-17] MEDS ORDERED: REGADENOSON 0.4 MG/5 ML PRE-FILLED SYRINGE IVPUSH ONE (11:30)
--- NOTE | 2017-08-17 12:36 | CON.CARD ---
Cardiology Consult (text) - Consultation Consultation Note: CC: cp hpi: 77 yo m with HTN, HL, Dm, CKD who presented with cp. Yesterday was at rest and noticed central sharp chest pain. Mild, lasted more a few minutes and resolved on own. No frequent cp episodes. No anginal sxs. No sob, palps, dizzy , loc, pnd, orthopnea, le edema. No hx hrt dz. Feeling well now, no further cp. PMhx: per hpi, no prior surgical hx Fam hx: No hx of heart disease Social hx: Former smoker, no etoh or illicits ROS: per hpi No f/c/s, n/v/d, h/a, rashes, visual changes, nasal congestion. Home Medications Medication Instructions Recorded Allopurinol [Zyloprim -] 100 mg PO DAILY 08/16/17 Aspirin 81 mg PO DAILY 08/16/17 Atenolol [Tenormin -] 50 mg PO HS 08/16/17 Cholecalciferol (Vitamin D3) 1,000 unit PO DAILY 08/16/17 [Vitamin D3 -] Cyanocobalamin (Vitamin B-12) 1,000 mcg PO DAILY 08/16/17 [Vitamin B12] Donepezil HCl 23 mg PO DAILY 08/16/17 Insulin Glargine,Hum.rec.anlog 30 unit SQ HS 08/16/17 [Lantus] Losartan Potassium 100 mg PO HS 08/16/17 Saxagliptin HCl [Onglyza] 2.5 mg PO DAILY 08/16/17 Ubidecarenone [Coenzyme Q-10] 100 mg PO DAILY 08/16/17 Vital Signs Period Temp Pulse Resp BP Sys/Ugarte Pulse Ox Last 24 Hr 97.7 F-98.0 F 68-81 14-148 119-178/53-83 98-100 NAD, calm JVD flat, neck supple RRR nl s1 s2, no m/r/g ctab, nl eff + bs soft nt nd ext without edema, cyanosis, clubbing + dp/pt aaox3 no jaundice diaphoresis Laboratory Last Values WBC 5.0 K/mm3 (4.0-10.0) 08/17/17 06:57 RBC 4.81 M/mm3 (4.00-5.60) 08/17/17 06:57 Hgb 13.5 GM/dL (11.7-16.9) 08/17/17 06:57 Hct 41.8 % (35.4-49) 08/17/17 06:57 MCV 86.9 fl (80-96) 08/17/17 06:57 MCH 28.0 pg (25.7-33.7) 08/17/17 06:57 MCHC 32.2 g/dl (32.0-35.9) 08/17/17 06:57 RDW 14.1 % (11.9-15.9) 08/17/17 06:57 Plt Count 176 K/MM3 (134-434) 08/17/17 06:57 MPV 10.1 fl (7.5-11.1) 08/17/17 06:57 Neutrophils % 47.6 % (42.8-82.8) 08/17/17 06:57 Lymphocytes % 34.1 % (8-40) 08/17/17 06:57 Monocytes % 11.0 % (3.8-10.2) H 08/17/17 06:57 Eosinophils % 6.0 % (0-4.5) H 08/17/17 06:57 Basophils % 1.3 % (0-2.0) 08/17/17 06:57 Sodium 142 mmol/L (136-145) 08/17/17 06:57 Potassium 4.3 mmol/L (3.5-5.1) 08/17/17 06:57 Chloride 107 mmol/L (98-107) 08/17/17 06:57 Carbon Dioxide 29 mmol/L (21-32) 08/17/17 06:57 Anion Gap 6 (8-16) L 08/17/17 06:57 BUN 20 mg/dL (7-18) H 08/17/17 06:57 Creatinine 1.2 mg/dL (0.7-1.3) 08/17/17 06:57 Creat Clearance w eGFR 59.02 (>60) 08/17/17 06:57 POC Glucometer 81.01136 UNITS (80-120) 08/17/17 07:21 Random Glucose 91 mg/dL (74-106) 08/17/17 06:57 Calcium 9.3 mg/dL (8.5-10.1) 08/17/17 06:57 Phosphorus 3.0 mg/dL (2.5-4.9) 08/17/17 06:57 Magnesium 2.2 mg/dL (1.8-2.4) D 08/17/17 06:57 Total Bilirubin 0.5 mg/dL (0.2-1.0) 08/17/17 06:57 AST 27 U/L (15-37) 08/17/17 06:57 ALT 42 U/L (12-78) 08/17/17 06:57 Alkaline Phosphatase 112 U/L (45-117) 08/17/17 06:57 Creatine Kinase 327 IU/L (39-308) H 08/16/17 18:16 Creatine Kinase Index 1.0 % (0.0-5.0) 08/16/17 18:16 CK-MB (CK-2) 3.419 ng/mL (0.5-3.6) 08/16/17 18:16 Troponin I < 0.02 ng/ml (0.00-0.05) 08/17/17 02:20 Total Protein 7.0 g/dl (6.4-8.2) 08/17/17 06:57 Albumin 3.3 g/dl (3.4-5.0) L 08/17/17 06:57 ekg: sr, nl intervals, no ischemic changes echo 03/2015: nl LV size, low nl LVEF, nl RV, mild tr cxr: clear lungs carotid dopplers 03/2015: no stenosis a/p: 77 yo m with HTN, HL, Dm, CKD who presented with cp. cp: -atypical, resolved -no signs acs, ce's negx3 -ecg unremarkable -will check echo and mibi, if both benign then ok for dc today from cardiac pov htn: -cont home meds hld: -stable, diet control
[2017-08-17 12:37] VITALS: BMI 22.6
--- NOTE | 2017-08-17 14:13 | PN ---
Progress Note, Physician Chief Complaint: pt in no acute distress. denies any chest pain, sob, n/v/d, fever/chills or weakness. at bedside - Current Medication List Current Medications: Active Medications Allopurinol (Zyloprim -) 100 mg PO DAILY [facility] Last Admin: 08/17/17 09:02 Dose: 100 mg Aspirin (Asa -) 81 mg PO DAILY [facility] Last Admin: 08/17/17 09:02 Dose: 81 mg Atenolol (Tenormin -) 50 mg PO [facility] Last Admin: 08/16/17 22:19 Dose: 50 mg Cyanocobalamin (Vitamin B12 -) 1,000 mcg PO DAILY [facility] Last Admin: 08/17/17 09:02 Dose: 1,000 mcg Heparin Sodium (Porcine) (Heparin -) 5,000 unit SQ TID [facility] Last Admin: 08/17/17 06:14 Dose: 5,000 unit Insulin Aspart (Novolog Vial Sliding Scale -) 1 vial SQ ACHS [facility] PRN Reason: Protocol Last Admin: 08/17/17 12:21 Dose: Not Given Losartan Potassium (Losartan Potassium) 100 mg PO [facility] Last Admin: 08/16/17 22:19 Dose: 100 mg Nitroglycerin (Nitrostat -) 0.4 mg SL Q5M PRN PRN Reason: FOR CHEST PAIN Non-Formulary Medication (Donepezil Hcl [Donepezil Hcl]) 23 mg PO DAILY [facility] - Objective Vital Signs: Vital Signs Temperature 97.8 F 08/17/17 08:30 Pulse Rate 77 08/17/17 12:21 Respiratory Rate 18 08/17/17 12:21 Blood Pressure 119/83 08/17/17 12:21 O2 Sat by Pulse Oximetry (%) 99 08/17/17 12:21 Constitutional: Yes: Well Nourished, No Distress Cardiovascular: Yes: WNL, Regular Rate and Rhythm. No: Gallop, Murmur, Rub Respiratory: Yes: WNL, Regular, CTA Bilaterally. No: Rales, Rhonchi, Tachypnea , Wheezes Gastrointestinal: Yes: WNL, Normal Bowel Sounds. No: Distention, Tenderness Musculoskeletal: Yes: WNL Extremities: Yes: WNL Edema: No Neurological: Yes: Alert Psychiatric: Yes: Alert Labs: CBC, BMP 08/17/17 06:57 08/17/17 06:57 - ....Imaging Chest X-ray: Report Reviewed EKG: Report Reviewed Problem List - Problems (1) Chest pain Assessment/Plan: pt reports he experienced sharp chest pain, which resolved, most likely atypical cardiology consulted tropsx3 neg ekg without acute changes echo/ stress echo pending Code(s): R07.9 - CHEST PAIN, UNSPECIFIED Qualifiers: Chest pain type: unspecified Qualified Code(s): R07.9 - Chest pain, unspecified (2) Dementia Assessment/Plan: chronic continue aricept, Coq10 Code(s): F03.90 - UNSPECIFIED DEMENTIA WITHOUT BEHAVIORAL DISTURBANCE Qualifiers: Dementia behavioral disturbance: without behavioral disturbance (3) Diabetes Assessment/Plan: stable continue home regimen insulin sliding scale bgm Code(s): E11.9 - TYPE 2 DIABETES MELLITUS WITHOUT COMPLICATIONS Qualifiers: Diabetes mellitus type: type 2 Diabetes mellitus senior living insulin use: with superintendent terminal use Chronic kidney disease stage: stage 3 (moderate) (4) Essential hypertension Assessment/Plan: controlled continue losartan and atenolol Code(s): I10 - ESSENTIAL (PRIMARY) HYPERTENSION (5) CKD (chronic kidney disease) Assessment/Plan: chronic will monitor Code(s): N18.9 - CHRONIC KIDNEY DISEASE, UNSPECIFIED Qualifiers: Chronic kidney disease stage: stage 3 (moderate) Qualified Code(s): N18.3 - Chronic kidney disease, stage 3 (moderate) (6) BPH (benign prostatic hyperplasia) Assessment/Plan: stable will monitor Code(s): N40.0 - BENIGN PROSTATIC HYPERPLASIA WITHOUT LOWER URINRY TRACT SYMP Qualifiers: Lower urinary tract symptom presence: symptoms absent Qualified Code(s): N40.0 - Benign prostatic hyperplasia without lower urinary tract symptoms Assessment/Plan Dispo: D/C home pending echo/ stress echo results
--- NOTE | 2017-08-17 18:31 | DS ---
Physical Exam: SUBJECTIVE: Patient seen and examined OBJECTIVE: Vital Signs Period Temp Pulse Resp BP Sys/Ugarte Pulse Ox Last 24 Hr 97.7 F-98.1 F 68-86 14-24 119-170/53-83 98-100 PHYSICAL EXAM GENERAL: The patient is awake, alert, and fully oriented, in no acute distress. HEAD: Normal with no signs of trauma. EYES: PERRL, extraocular movements intact, sclera anicteric, conjunctiva clear. ENT: Ears normal, nares patent, oropharynx clear without exudates, moist mucous membranes. NECK: Trachea midline, full range of motion, supple. LUNGS: Breath sounds equal, clear to auscultation bilaterally, no wheezes, no crackles, no accessory muscle use. HEART: Regular rate and rhythm, S1, S2 without murmur, rub or gallop. ABDOMEN: Soft, nontender, nondistended, normoactive bowel sounds, no guarding, no rebound, no hepatosplenomegaly, no masses. EXTREMITIES: 2+ pulses, warm, well-perfused, no edema. NEUROLOGICAL: Cranial nerves II through XII grossly intact. Normal speech, gait not observed. PSYCH: Normal mood, normal affect. SKIN: Warm, dry, normal turgor, no rashes or lesions noted. LABS Laboratory Results - last 24 hr 08/16/17 08/16/17 08/16/17 18:16 22:14 23:53 WBC RBC Hgb Hct MCV MCH MCHC RDW Plt Count MPV Neutrophils % Lymphocytes % Monocytes % Eosinophils % Basophils % Sodium Potassium Chloride Carbon Dioxide Anion Gap BUN Creatinine Creat Clearance w eGFR POC Glucometer > 400 219.47220 Random Glucose Calcium Phosphorus Magnesium Total Bilirubin AST ALT Alkaline Phosphatase Creatine Kinase 327 H Creatine Kinase Index 1.0 CK-MB (CK-2) 3.419 Troponin I < 0.02 Total Protein Albumin 08/17/17 08/17/17 08/17/17 02:20 02:21 06:57 WBC 5.0 RBC 4.81 Hgb 13.5 Hct 41.8 MCV 86.9 MCH 28.0 MCHC 32.2 RDW 14.1 Plt Count 176 MPV 10.1 Neutrophils % 47.6 Lymphocytes % 34.1 Monocytes % 11.0 H Eosinophils % 6.0 H Basophils % 1.3 Sodium Potassium Chloride Carbon Dioxide Anion Gap BUN Creatinine Creat Clearance w eGFR POC Glucometer Random Glucose Calcium Phosphorus Magnesium Total Bilirubin AST ALT Alkaline Phosphatase Creatine Kinase Creatine Kinase Index CK-MB (CK-2) Troponin I < 0.02 Cancelled Total Protein Albumin 08/17/17 08/17/17 08/17/17 06:57 07:21 15:41 WBC RBC Hgb Hct MCV MCH MCHC RDW Plt Count MPV Neutrophils % Lymphocytes % Monocytes % Eosinophils % Basophils % Sodium 142 Potassium 4.3 Chloride 107 Carbon Dioxide 29 Anion Gap 6 L BUN 20 H Creatinine 1.2 Creat Clearance w eGFR 59.02 POC Glucometer 81.00176 91.09833 Random Glucose 91 Calcium 9.3 Phosphorus 3.0 Magnesium 2.2 D Total Bilirubin 0.5 AST 27 ALT 42 Alkaline Phosphatase 112 Creatine Kinase Creatine Kinase Index CK-MB (CK-2) Troponin I Total Protein 7.0 Albumin 3.3 L 08/17/17 17:19 WBC RBC Hgb Hct MCV MCH MCHC RDW Plt Count MPV Neutrophils % Lymphocytes % Monocytes % Eosinophils % Basophils % Sodium Potassium Chloride Carbon Dioxide Anion Gap BUN Creatinine Creat Clearance w eGFR POC Glucometer 108 Random Glucose Calcium Phosphorus Magnesium Total Bilirubin AST ALT Alkaline Phosphatase Creatine Kinase Creatine Kinase Index CK-MB (CK-2) Troponin I Total Protein Albumin HOSPITAL COURSE: Date of Admission:08/16/17 Date of Discharge: 08/17/17 Pre hospital course 77 year-old male with a PMH significant for HTN, HLD, IDDM, renal calculi, BPH, CKD, and dementia. Presented to the ED with a complaint of chest pain since the previous evening. He described his pain as sharp, nonradiating without associated SOB, HINDS, or palpitations. On admission, patient could not recall why he came to the ED. He said he has cataracts and perhaps that was the reason. He denied chest pain of any kind. He had no complaints. He said he walks for one hour every day six days a week. ER course was notable for: (1) Trop neg x 1 (2) ASA 325mg, nitro SL x 1, Tylenol 1g Subsequent hospital course 08/17 Echo: normal LV, normal RV; mild to moderate MR; moderate TR 08/17 Nuclear stress test: low risk findings; excellent exercise tolerance w/o anginal sxs and only mild apical ischemia with nl lvef. Continue with med rx for this finding. Discharge Summary Reason For Visit: CHEST PAIN Current Active Problems Chest pain (Acute) BPH (benign prostatic hyperplasia) (Chronic) CKD (chronic kidney disease) (Chronic) Hyperlipidemia (Chronic) Condition: Improved - Instructions Diet, Activity, Other Instructions: You should follow up with Dr. Hernandez in two weeks. Return to the emergency department for any new or worsening symptoms. Referrals: Ash Hernandez MD [Staff Physician] - 2 Weeks Zari Mistry MD [Primary Care Provider] - 1 Week Disposition: HOME - Home Medications Comprehensive Discharge Medication List: Ambulatory Orders Allopurinol [Zyloprim -] 100 mg PO DAILY 08/16/17 Aspirin 81 mg PO DAILY 08/16/17 Atenolol [Tenormin -] 50 mg PO HS 08/16/17 Cholecalciferol (Vitamin D3) [Vitamin D -] 1,000 unit PO DAILY 08/16/17 Cyanocobalamin (Vitamin B-12) [Vitamin B12] 1,000 mcg PO DAILY 08/16/17 Donepezil HCl 23 mg PO DAILY 08/16/17 Insulin Glargine,Hum.rec.anlog [Lantus] 30 unit SQ HS 08/16/17 Losartan Potassium 100 mg PO HS 08/16/17 Saxagliptin HCl [Onglyza] 2.5 mg PO DAILY 08/16/17 Ubidecarenone [Coenzyme Q-10] 100 mg PO DAILY 08/16/17
[2017-08-17 20:03] VITALS: BP 156/77; PULSE 75; TEMP 98.6
== END 2017-08-17 21:02 | disposition home or self-care (01) ==
LOC: JER 12:47 → JERBED 18:30 → J4W 08-17 16:31
PROVIDERS: ADMIT Internal Medicine; ATTEND Internal Medicine
PROC: 3E013VG Introduction of Insulin into Subcutaneous Tissue, Percutaneous Approach (ICD-10-PCS; principal; 2017-08-16)
PROC: 3E013GC Introduction of Other Therapeutic Substance into Subcutaneous Tissue, Percutaneous Approach (ICD-10-PCS; 2017-08-16)
DX: R07.89 Other chest pain (principal); I12.9 Hypertensive chronic kidney disease with stage 1 through stage 4 chronic kidney disease, or unspecified chronic kidney disease; E11.22 Type 2 diabetes mellitus with diabetic chronic kidney disease; N18.9 Chronic kidney disease, unspecified; E78.5 Hyperlipidemia, unspecified; F03.90 Unspecified dementia, unspecified severity, without behavioral disturbance, psychotic disturbance, mood disturbance, and anxiety; N40.0 Benign prostatic hyperplasia without lower urinary tract symptoms; Z79.4 Long term (current) use of insulin; Z79.82 Long term (current) use of aspirin; Z87.442 Personal history of urinary calculi
CPT/HCPCS: 36415; 71046-TC-FY; 78452-TC; 80053; 82550; 82553; 82962; 83735; 84100; 84484; 85025; 93005; 93010; 93017; 93306-TC; 96372; 99285-25; A9502; C1887; G0378; J1245; J1644

== ENCOUNTER 2018-03-31 18:40 | Emergency (ER) | payer OTHER ==
--- NOTE | 2018-03-31 19:00 | PDOC ---
Rapid Medical Evaluation Time Seen by Provider: 03/31/18 18:54 Medical Evaluation: Allergies Allergy/AdvReac Type Severity Reaction Status Date / Time No Known Drug Allergies Allergy Verified 08/16/17 12:53 03/31/18 18:54 I have performed a brief in-person evaluation of the patient The patient presents with a chief complaint of: headache with elevated blood pressure today. Reports intermittent headache x 1 month , has appointment for neurologist 04/27/18 Pertinent physical exam findings are: NAD HEENT: PERRLA even and unlabored +EOMI, alert and oriented to person and place I have ordered the following: iv site, labs, head ct The patient will proceed to the ED for further evaluation.
[2018-03-31 19:02] VITALS: BP 141/60; PULSE 75; TEMP 98.3; BMI 22.6
--- NOTE | 2018-03-31 19:59 | PDOC ---
History of Present Illness <Ruben Chavez - Last Filed: 04/01/18 00:25> - History of Present Illness Initial Comments: 78 year old male with PMH of HTN, IDDM, and HLD presenting with headache for the past 2 months. States that he has this bilateral, frontal , squeezing headache that is slightly better with Tylenol and rest. Occasionally feels the headache when waking in the morning. Denies any new visual symptoms, balance issues, or bowel/ bladder incontinence. He has taken 1.5 G of Tylenol daily for the past month. He has an appointment with Dr. Torre in a few weeks. Denies any nausea, vomiting, or other concerning symptoms. 04/01/18 00:37 <Rocco Epstein - Last Filed: 04/01/18 01:18> - General Chief Complaint: Headache Stated Complaint: HEADACHE Time Seen by Provider: 03/31/18 18:54 Past History <Ruben Chavez - Last Filed: 04/01/18 00:25> - Past Medical History Anemia: No Asthma: No Cancer: No Cardiac Disorders: No CVA: No COPD: No CHF: No DVT: No Dementia: Yes Diabetes: Yes GI Disorders: No Disorders: Yes (KIDNEY STONES) HTN: Yes Hypercholesterolemia: Yes Kidney Stones: Yes Liver Disease: No Seizures: No Thyroid Disease: No - Surgical History Abdominal Surgery: No Appendectomy: No Cardiac Surgery: No Cholecystectomy: No Lung Surgery: No Neurologic Surgery: No Orthopedic Surgery: No - Suicide/Smoking/Psychosocial Hx Smoking History: Former smoker Have you smoked in the past 12 months: No If you are a former smoker, when did you quit?: 20 yrs ago Information on smoking cessation initiated: No Hx Alcohol Use: No Drug/Substance Use Hx: No Substance Use Type: None Hx Substance Use Treatment: No <Rocco Epstein - Last Filed: 04/01/18 01:18> - Past Medical History Allergies/Adverse Reactions: Allergies Allergy/AdvReac Type Severity Reaction Status Date / Time No Known Drug Allergies Allergy Verified 03/31/18 18:54 Home Medications: Ambulatory Orders Allopurinol [Zyloprim -] 100 mg PO DAILY 08/16/17 Aspirin 81 mg PO DAILY 08/16/17 Atenolol [Tenormin -] 50 mg PO HS 08/16/17 Cholecalciferol (Vitamin D3) [Vitamin D -] 1,000 unit PO DAILY 08/16/17 Cyanocobalamin (Vitamin B-12) [Vitamin B12] 1,000 mcg PO DAILY 08/16/17 Donepezil HCl 23 mg PO DAILY 08/16/17 Insulin Glargine,Hum.rec.anlog [Lantus] 34 unit SQ HS 08/16/17 Losartan Potassium 100 mg PO HS 08/16/17 Saxagliptin HCl [Onglyza] 2.5 mg PO DAILY 08/16/17 Ubidecarenone [Coenzyme Q-10] 100 mg PO DAILY 08/16/17 Acetaminophen [Tylenol] 650 mg PO QID PRN 03/31/18 Ezetimibe/Simvastatin [Vytorin 10-20 mg Tablet] 1 tab PO DAILY 03/31/18 Memantine HCl [Namenda Xr] 28 mg PO DAILY 03/31/18 Nifedipine [Nifedipine ER] 90 mg PO DAILY 03/31/18 Review of Systems - Review of Systems Constitutional: No: Chills, Diaphoresis, Fever HEENTM: No: Eye Pain, Blurred Vision, Tearing Respiratory: No: Cough, Orthopnea, Shortness of Breath Cardiac (ROS): No: Chest Pain, Edema, Irregular Heart Rate, Lightheadedness ABD/GI: No: Diarrhea, Nausea, Vomiting : No: Burning, Dysuria, Discharge Musculoskeletal: No: Back Pain, Gout, Joint Pain Integumentary: No: Bruising, Erythema Neurological: No: Headache, Numbness, Paresthesia Psychiatric: No: Anxiety, Depression Hematologic/Lymphatic: No: Anemia, Blood Clots <Rocco Epstein - Last Filed: 04/01/18 01:18> *Physical Exam - Vital Signs Last Vital Signs Temp Pulse Resp BP Pulse Ox 98.3 F 75 18 141/60 98 03/31/18 18:59 03/31/18 18:59 03/31/18 18:59 03/31/18 18:59 03/31/18 18:59 <Ruben Chavez - Last Filed: 04/01/18 00:25> - Vital Signs Last Vital Signs Temp Pulse Resp BP Pulse Ox 98.3 F 75 18 141/60 98 03/31/18 18:59 03/31/18 18:59 03/31/18 18:59 03/31/18 18:59 03/31/18 18:59 - Physical Exam General Appearance: Yes: Nourished, Appropriately Dressed. No: Apparent Distress HEENT: positive: EOMI, ART, Normal ENT Inspection, Normal Voice Neck: positive: Trachea midline, Normal Thyroid, Supple. negative: Tender, Rigid Respiratory/Chest: positive: Lungs Clear, Normal Breath Sounds. negative: Chest Tender, Respiratory Distress, Accessory Muscle Use Cardiovascular: positive: Regular Rhythm, Regular Rate Gastrointestinal/Abdominal: positive: Normal Bowel Sounds, Flat, Soft. negative : Tender Lymphatic: negative: Adenopathy, Tenderness Musculoskeletal: positive: Normal Inspection. negative: CVA Tenderness Extremity: positive: Normal Capillary Refill, Normal Inspection, Normal Range of Motion. negative: Tender Integumentary: positive: Normal Color, Dry, Warm Neurologic: positive: lieutenant governor II-XII NML intact, Fully Oriented, Alert, Normal Mood/ Affect, Normal Response, Motor Strength 5/5 <Rocco Epstein - Last Filed: 04/01/18 01:18> ED Treatment Course - LABORATORY CBC & Chemistry Diagram: 03/31/18 21:33 03/31/18 21:33 - ADDITIONAL ORDERS Additional order review: Laboratory Results 03/31/18 03/31/18 21:33 21:33 PT with INR 12.10 INR 1.03 PTT (Actin FS) 29.8 Sodium 144 Potassium 4.5 Chloride 106 Carbon Dioxide 26 Anion Gap 11 BUN 19 H Creatinine 1.2 Creat Clearance w eGFR 58.86 Random Glucose 177 H Calcium 9.7 Total Bilirubin 0.2 AST 43 H ALT 83 H Alkaline Phosphatase 121 H Troponin I < 0.02 Total Protein 8.0 Albumin 4.0 03/31/18 21:33 RBC 4.96 MCV 88.2 MCHC 32.5 RDW 15.3 MPV 9.5 Neutrophils % 48.3 Lymphocytes % 34.6 Monocytes % 9.1 Eosinophils % 6.8 H Basophils % 1.2 <Ruben Chavez - Last Filed: 04/01/18 00:25> - LABORATORY CBC & Chemistry Diagram: 03/31/18 21:33 03/31/18 21:33 <Rocco Epstein - Last Filed: 04/01/18 01:18> Medical Decision Making - Medical Decision Making 78 year old male with PMH of htn, hld, and diabetes with chronic headache for two months. Head CT negative and labs WNL. Spoke to poison control regarding Tylenol intake and they were not concerned given his only slightly elevated levels of AST/ ALT. Patient discharged with follow up with [facility] and instructions to use less Tylenol. 04/01/18 00:56 <Rocco Epstein - Last Filed: 04/01/18 01:18> *DC/Admit/Observation/Transfer <Ruben Chavez - Last Filed: 04/01/18 00:25> <Rocco Epstein - Last Filed: 04/01/18 01:18> Diagnosis at time of Disposition: Headache Qualifiers: Headache type: unspecified Headache chronicity pattern: unspecified pattern Intractability: not intractable Qualified Code(s): R51 - Headache - Discharge Dispostion Disposition: HOME Condition at time of disposition: Stable - Referrals Referrals: Zari Mistry MD [Primary Care Provider] - - Patient Instructions Printed Discharge Instructions: DI for Headache Additional Instructions: Please use Tylenol two times a day and Motrin once if needed in between. Please follow up with Dr. Torre at your appointment. Please come back to the ED if you have new or worsening symptoms. - Post Discharge Activity
--- NOTE | 2018-03-31 21:23 | PDOC ---
Attending Attestation - Resident Resident Name: Rocco Epstein - ED Attending Attestation I have performed the following: I have examined & evaluated the patient, The case was reviewed & discussed with the resident, I agree w/resident's findings & plan, Exceptions are as noted - Physicial Exam PE: 03/31/18 22:55 Patient is awake and alert, well-appearing, in no distress Normocephalic and atraumatic EOMI, no nystagmus CTA RRR Cranial nerves II through XII grossly intact; motor is 5 of 54; no pronation drift; - Medical Decision Making 03/31/18 22:56 78-year-old male presents with a recurrent retro-orbital and frontal headache for the past several months, intermittent, partially relieved by by mouth Tylenol. In the ER, patient is awake and alert, nonfocal neurologically with a stable gait. CT of head shows no evidence of acute intracranial pathology. ESR is within normal limit. I do not suspect aneurysmal headache at this time. Subarachnoid hemorrhage nor meningitis is also highly unlikely. We'll discharge with neurology follow-up <Ruben Chavez - Last Filed: 03/31/18 22:55> - HPI HPI: 03/31/18 22:57 The patient is a 78 year old female, with a significant past medical history of diabetes, hypertension, and hyperlipidemia, who presents to the emergency department with, 2 months of a headache. Patient describes his headache as an intermittent bandlike, squeezing, at worse an 8/10 which is resolved with 500mg of Ibuprofen 3 times a day. He is currently being worked up by Dr. Torre for his headaches. <Nathalie Noel - Last Filed: 03/31/18 22:58> Attestations - Attestations 03/31/18 22:57 Documentation prepared by Nathalie Noel, acting as medical/surgery registered nurse for Ruben Chavez MD. <Nathalie Noel - Last Filed: 03/31/18 22:58>
[2018-03-31 21:44] LABS: BASO % 1.2 % (0-2.0); EOS % 6.8 % (0-4.5); HEMATOCRIT 43.7 % (35.4-49); HEMOGLOBIN 14.2 GM/dL (11.7-16.9); LYMPH % 34.6 % (8-40); MCH 28.7 pg (25.7-33.7); MCHC 32.5 g/dl (32.0-35.9); MEAN CELL VOLUME 88.2 fl (80-96); MEAN PLT VOLUME 9.5 fl (7.5-11.1); MONO % 9.1 % (3.8-10.2); NEUT % 48.3 % (42.8-82.8); PLATELET COUNT 252 K/MM3 (134-434); RBC 4.96 M/mm3 (4.00-5.60); RDW 15.3 % (11.9-15.9)
[2018-03-31 21:57] LABS: INR 1.03 (0.83-1.09); PROTHROMBIN TIME (PATIENT) 12.1 SEC (9.7-13.0)
[2018-03-31 22:00] LABS: ACTIVATED PTT 29.8 SECONDS (25.2-36.5)
[2018-03-31 22:29] LABS: ALK PHOS 121 U/L (45-117); ANION GAP 11 MMOL/L (8-16); BILIRUBIN,TOTAL 0.2 mg/dL (0.2-1); BLOOD UREA NITROGEN 19 mg/dL (7-18); CALCIUM 9.7 mg/dL (8.5-10.1); CHLORIDE 106 mmol/L (98-107); CO2 26 mmol/L (21-32); CREATININE 1.2 mg/dL (0.55-1.3); GLUCOSE,RANDOM 177 mg/dL (74-106); POTASSIUM 4.5 mmol/L (3.5-5.1); SGOT/AST 43 U/L (15-37); SGPT/ALT 83 U/L (13-61); SODIUM 144 mmol/L (136-145)
== END 2018-04-01 00:50 | disposition home or self-care (01) ==
LOC: JER 18:40
DX: R51 Headache (principal); Z87.891 Personal history of nicotine dependence; I10 Essential (primary) hypertension; E78.00 Pure hypercholesterolemia, unspecified
CPT/HCPCS: 36415; 70450-TC; 80053; 84484; 85025; 85610; 85651; 85730; 99282-25

== ENCOUNTER 2018-07-31 17:25 | Observation (INO) | payer OTHER ==
--- NOTE | 2018-07-31 17:39 | PDOC ---
Rapid Medical Evaluation Time Seen by Provider: 07/31/18 17:37 Medical Evaluation: Allergies Allergy/AdvReac Type Severity Reaction Status Date / Time No Known Drug Allergies Allergy Verified 03/31/18 18:54 07/31/18 17:37 I have performed a brief in-person evaluation of the patient. The patient presents with a chief complaint of: chest pain x 3 days with no dizziness, nausea or shortness of breath. Seen by pmd and sent to ed for further evaluation. No chest pain at present Pertinent physical exam findings. nad clear and unlabored breathing bilaterally heart s1s2, non tender chest I have ordered the following. iv, labs, ekg The patient will proceed to the ED for further evaluation.
[2018-07-31 18:54] LABS: BASO % 1.3 % (0-2.0); EOS % 6.6 % (0-4.5); HEMATOCRIT 42.9 % (35.4-49); HEMOGLOBIN 14.5 GM/dL (11.7-16.9); LYMPH % 28.4 % (8-40); MCH 29.4 pg (25.7-33.7); MCHC 33.7 g/dl (32.0-35.9); MEAN CELL VOLUME 87.1 fl (80-96); MEAN PLT VOLUME 9.6 fl (7.5-11.1); MONO % 9.1 % (3.8-10.2); NEUT % 54.6 % (42.8-82.8); PLATELET COUNT 179 K/MM3 (134-434); RBC 4.93 M/mm3 (4.00-5.60); RDW 13.5 % (11.9-15.9); WHITE BLOOD COUNT 6.5 K/mm3 (4.0-10.0)
--- NOTE | 2018-07-31 19:11 | PDOC ---
History of Present Illness - General Chief Complaint: Chest Pain Stated Complaint: CHEST PAIN Time Seen by Provider: 07/31/18 17:37 History Source: Patient, Spouse Exam Limitations: Dementia - History of Present Illness Initial Comments: 07/31/18 18:05 The patient is a 78M with a PMH of HTN, HLD, DM who presents to the ER with complaints of chest pain (sent by PCP - Dr. Mistry and cards - Dr. Hernandez). The patient states that he's had 3 days of retrosternal chest pain, nonradiating, intermittent, not associated with nausea, vomiting, SOB, palpitations, lightheadedness, fever, chills. He states that he went to his PCP and saw his viner operator, who both recommend that he comes to the ER. He denies any other complaints. Past History - Past Medical History Allergies/Adverse Reactions: Allergies Allergy/AdvReac Type Severity Reaction Status Date / Time No Known Drug Allergies Allergy Verified 03/31/18 18:54 Home Medications: Ambulatory Orders Allopurinol [Zyloprim -] 100 mg PO DAILY 08/16/17 Aspirin 81 mg PO DAILY 08/16/17 Atenolol [Tenormin -] 50 mg PO BID 08/16/17 Cholecalciferol (Vitamin D3) [Vitamin D -] 1,000 unit PO DAILY 08/16/17 Donepezil HCl 10 mg PO DAILY 08/16/17 Insulin Glargine,Hum.rec.anlog [Lantus] 34 unit SQ HS 08/16/17 Losartan Potassium 100 mg PO HS 08/16/17 Saxagliptin HCl [Onglyza] 2.5 mg PO DAILY 08/16/17 Ubidecarenone [Coenzyme Q-10] 100 mg PO DAILY 08/16/17 Acetaminophen [Tylenol] 650 mg PO QID PRN 03/31/18 Ezetimibe/Simvastatin [Vytorin 10-20 mg Tablet] 1 tab PO DAILY 03/31/18 Memantine HCl [Namenda Xr] 28 mg PO DAILY 03/31/18 Nifedipine [Nifedipine ER] 90 mg PO DAILY 03/31/18 Anemia: No Asthma: No Cancer: No Cardiac Disorders: No CVA: No COPD: No CHF: No DVT: No Dementia: Yes Diabetes: Yes GI Disorders: No Disorders: Yes (KIDNEY STONES) HTN: Yes Hypercholesterolemia: Yes Kidney Stones: Yes Liver Disease: No Seizures: No Thyroid Disease: No - Surgical History Abdominal Surgery: No Appendectomy: No Cardiac Surgery: No Cholecystectomy: No Lung Surgery: No Neurologic Surgery: No Orthopedic Surgery: No - Suicide/Smoking/Psychosocial Hx Smoking History: Former smoker Have you smoked in the past 12 months: No If you are a former smoker, when did you quit?: 20 yrs ago Information on smoking cessation initiated: No Hx Alcohol Use: No Drug/Substance Use Hx: No Substance Use Type: None Hx Substance Use Treatment: No Review of Systems - Review of Systems Able to Perform ROS?: Yes Comments:: 07/31/18 19:20 GENERAL/CONSTITUTIONAL: No fever or chills. No weakness. HEAD, EYES, EARS, NOSE AND THROAT: No change in vision. No ear pain or discharge. No sore throat. CARDIOVASCULAR: Positive for chest pain. No palpitations or lightheadedness. RESPIRATORY: No cough, wheezing, shortness of breath, or hemoptysis. GASTROINTESTINAL: No nausea, vomiting, diarrhea, constipation, or abdominal pain. GENITOURINARY: No dysuria, frequency, hematuria, or change in urination. MUSCULOSKELETAL: No joint or muscle swelling or pain. No neck or back pain. SKIN: No rash or lesions. NEUROLOGIC: No headache, numbness, tingling, focal weakness, loss of consciousness, or change in strength/sensation. Is the patient limited French proficient: No *Physical Exam - Vital Signs Last Vital Signs Temp Pulse Resp BP Pulse Ox 98.1 F 68 15 120/53 L 99 07/31/18 17:38 07/31/18 17:38 07/31/18 17:38 07/31/18 17:38 07/31/18 17:38 - Physical Exam Comments: 07/31/18 19:21 GENERAL: Well developed, well nourished. Awake and alert. No acute distress. HEENT: Normocephalic, atraumatic. Hearing grossly normal. Moist mucous membranes. PERRLA, EOMI. No conjunctival pallor. Sclera are non-icteric. NECK: Supple. Full ROM. No JVD. CARDIOVASCULAR: Regular rate and rhythm. No murmurs, rubs, or gallops. PULMONARY: No evidence of respiratory distress. Lungs clear to auscultation bilaterally. No wheezing, rales or rhonchi. ABDOMINAL: Soft. Non-tender. Non-distended. No rebound or guarding. GENITOURINARY: No CVA tenderness bilaterally. MUSCULOSKELETAL: Normal range of motion at all joints. No bony deformities or tenderness. EXTREMITIES: No cyanosis. No clubbing. No edema. No calf tenderness or swelling. SKIN: Warm and dry. Normal capillary refill. No rashes. No jaundice. NEUROLOGICAL: Alert, awake, appropriate. Cranial nerves 2-12 grossly intact. Normal speech. PSYCHIATRIC: Cooperative. Good eye contact. Appropriate mood and affect. Moderate Sedation - Procedure Monitoring Vital Signs: Procedure Monitoring Vital Signs Temperature 98.1 F 07/31/18 17:38 Pulse Rate 68 07/31/18 17:38 Respiratory Rate 15 07/31/18 17:38 Blood Pressure 120/53 L 07/31/18 17:38 O2 Sat by Pulse Oximetry (%) 99 07/31/18 17:38 Heart Score/ECG Review - History History: Slightly suspicious - Electrocardiogram EKG: Non specific repolarization disturbance - Age Age: >/= 65 - Risk Factors Risk Factors Heart Score: Yes Hx Hypercholesterolemia, Yes Hx Hypertension, Yes Hx Diabetes Based on the list above the patient has:: >/=3 risk factors or Hx atherosclerotic disease - Troponin Troponin: </= normal limit - Score Heart Score - Total: 5 #1 General ECG Interpretation: Sinus Rhythm, Normal Rate, Normal Intervals, No acute ischemic changes Compared to previous ECG there are: No significant change 07/31/18 19:26 NSR vent rate 70 IL 158 QRS 84 QTc 398 No STD or HELENE Biphasic T wave in V3-4 No signs of acute ischemia ED Treatment Course - LABORATORY CBC & Chemistry Diagram: 07/31/18 18:46 07/31/18 18:46 Medical Decision Making - Medical Decision Making 07/31/18 19:27 The patient is a 78M with a PMH of HTN, HLD, and DM who presents to the ER with 3 days of intermittent chest pain, per PCP and viner operator. Labwork pending, HEART score of 5. Will require at least obs. 07/31/18 19:30 Trop negative. Anand Henrandez and admitting team. 07/31/18 19:41 Dr. Monzon aware of pt. Anand inpatient team. 01/28/19 21:00 Pt requesting insulin. Per : - 30 units Lantis at night - Humalog before meals: 10, 10, 12 *DC/Admit/Observation/Transfer Diagnosis at time of Disposition: Chest pain Qualifiers: Chest pain type: unspecified Qualified Code(s): R07.9 - Chest pain, unspecified - Discharge Dispostion Condition at time of disposition: Guarded Decision to Admit order: Yes - Referrals Referrals: Zari Mistry MD [Primary Care Provider] - - Patient Instructions - Post Discharge Activity
[2018-07-31 19:15] LABS: INR 1.01 (0.83-1.09); PROTHROMBIN TIME (PATIENT) 11.9 SEC (9.7-13.0)
[2018-07-31 19:17] LABS: ACTIVATED PTT 30.3 SECONDS (25.2-36.5)
[2018-07-31 19:25] LABS: ALBUMIN 3.7 g/dl (3.4-5.0); ALK PHOS 110 U/L (45-117); ANION GAP 7 MMOL/L (8-16); BILIRUBIN,TOTAL 0.4 mg/dL (0.2-1); BLOOD UREA NITROGEN 23 mg/dL (7-18); CALCIUM 9.4 mg/dL (8.5-10.1); CHLORIDE 106 mmol/L (98-107); CO2 29 mmol/L (21-32); CREATININE 1.2 mg/dL (0.55-1.3); GLUCOSE,RANDOM 199 mg/dL (74-106); POTASSIUM 4.3 mmol/L (3.5-5.1); SGOT/AST 29 U/L (15-37); SGPT/ALT 61 U/L (13-61); SODIUM 142 mmol/L (136-145); TOT PROT 7.4 g/dl (6.4-8.2)
--- NOTE | 2018-07-31 19:27 | PDOC ---
Attending Attestation - Resident Resident Name: EdischristieElder - ED Attending Attestation I have performed the following: I have examined & evaluated the patient, The case was reviewed & discussed with the resident, I agree w/resident's findings & plan, Exceptions are as noted - HPI HPI: 07/31/18 19:26 78-year-old male presents with 3 days of substernal chest pain that is nonradiating. He denies any shortness of breath, nausea, vomiting or diaphoresis Patient was sent in by Dr Mistry and the quality control systems manager, Dr. Hernandez - Physicial Exam PE: 07/31/18 19:38 78-year-old male with 3 days of nonradiating substernal chest pain presents after being referred to the emergency department by his primary care doctor head ncat neck flat jvd,no bruits,supple lungs cta b/l cvs [id number] abd nontender no cva tenderness ext no edema,no clubbing skin warm and dry neuro axoxo3, ambulatory psych appropriate - Medical Decision Making 07/31/18 19:27 78-year-old male had an echo done 08/21/2017 that showed normal LV function and normal LV ejection fraction, normal wall motion, moderate tricuspid regurg, no pericardial effusion, no aortic stenosis. Patient did have a stress test that was positive for reversible ischemia in 2014 he was sent in for admission because he is symptomatic and had a history of a positive stress test on 08/17/17. 07/31/18 19:[address] Monzon who wants inpatient telemetry 07/31/18 19:46 first troponin is negative
--- NOTE | 2018-07-31 20:22 | PN ---
Teaching Attending Note Name of Resident: Cortez Bullock ATTENDING PHYSICIAN STATEMENT I saw and evaluated the patient. I reviewed the resident's note and discussed the case with the resident. I agree with the resident's findings and plan as documented. SUBJECTIVE: Patient is a 78 year old man with a PMH of HTN, HLD, kidney stones (had lithotripsy), mild dementia and NIDDM who presents to the ER with complaints of intermittent chest pain (sent by PCP - Dr. Mistry and cards - Dr. Hernandez). The patient states that he's had 3 days of retrosternal chest pain, nonradiating, intermittent, not associated with nausea, vomiting, SOB, palpitations, lightheadedness, fever, chills. He states that he went to his PCP and saw his global commodity manager, who both recommend that he comes to the ER. He is now painfree. He had a positive stress test on 08/17/17 - it is unclear why he never had further cardiac work up such as cardiac catheterization. OBJECTIVE: Alert Vital Signs Period Temp Pulse Resp BP Sys/Ugarte Pulse Ox Last 24 Hr 98.0 F-98.1 F 60-68 14-16 120-120/51-68 97-99 HEENT: No Jaundice, eye redness or discharge, PERRLA, EOMI. Normocephalic, atraumatic. External ears are normal and hearing is grossly intact. No nasal discharge. Neck: Supple, nontender. No palpable adenopathy or thyromegaly. No JVD Chest: Good effort. Clear to auscultation and percussion. Heart: Regular. No S3, rub or murmur Abdomen: Not distended, soft, nontender and no HSM. No rebound or guarding. Normoactive bowel sounds. Ext: Peripheral pulses intact. No leg edema. Skin: Warm and dry. No petechiae, rash or ecchymosis. Neuro: Alert. Oriented x3. CN 2-12 grossly intact. Sensation grossly intact in all four extremities and DTR are symmetric. Home Medications Medication Instructions Recorded Allopurinol [Zyloprim -] 100 mg PO DAILY 08/16/17 Aspirin 81 mg PO DAILY 08/16/17 Atenolol [Tenormin -] 50 mg PO BID 08/16/17 Cholecalciferol (Vitamin D3) 1,000 unit PO DAILY 08/16/17 [Vitamin D -] Donepezil HCl 10 mg PO DAILY 08/16/17 Insulin Glargine,Hum.rec.anlog 34 unit SQ HS 08/16/17 [Lantus] Losartan Potassium 100 mg PO HS 08/16/17 Saxagliptin HCl [Onglyza] 2.5 mg PO DAILY 08/16/17 Ubidecarenone [Coenzyme Q-10] 100 mg PO DAILY 08/16/17 Acetaminophen [Tylenol] 650 mg PO QID PRN 03/31/18 Ezetimibe/Simvastatin [Vytorin 1 tab PO DAILY 03/31/18 10-20 mg Tablet] Memantine HCl [Namenda Xr] 28 mg PO DAILY 03/31/18 Nifedipine [Nifedipine ER] 90 mg PO DAILY 03/31/18 Abnormal Lab Results 07/31/18 07/31/18 18:46 18:46 Eosinophils % 6.6 H Anion Gap 7 L BUN 23 H Random Glucose 199 H ASSESSMENT AND PLAN: 1. Chest pain/Rule out ACS - Initial toponin is negative and EKG does not show any acute ST-T wave changes. No acute abnormality on CXR. Will admit as an Observation case to telemetry to rule out ACS, get ECHO, fasting lipids and consult cardiology. Check uric acid level. Will restart his home antihypertensive drugs. Nonpharmacologic measures to control hypertension like weight loss, salt restriction and exercise discussed. 2. DM - For now, we will hold the home diabetes drugs and implement sliding scale insulin regimen. Provide comprehensive diabetes care with patient teaching and counseling about the importance of euglycemia, eye care and foot care. 3. DVT prophylaxis - Lovenox 40 mg SQ q 24 hours. 4. Advance directives - Full code
[2018-07-31] MEDS ORDERED: ASPIRIN 81 MG CHEWABLE TABLETS PO ONE (20:57)
[2018-07-31] MEDS ORDERED: INSULIN (LEVEMIR) 100 UNITS/ML UNITS SQ ONE ×2 (21:01→21:18)
[2018-07-31] MEDS ORDERED: ASPIRIN 81 MG CHEWABLE TABLETS ONE (21:17)
--- NOTE | 2018-07-31 21:47 | HP ---
CHIEF COMPLAINT: Chest Pain PCP: Dr. Fidelia Hernandez (Cards) HISTORY OF PRESENT ILLNESS: The patient is a 78 yo m w/ PMH HTN, HLD, IDDM who comes into the ED c/o a 3 day hx of CP. The patient describes a substernal, dull CP which does not radiate. The pain is alleviated by taking aspirin and has no exacerbating factors. Patient states that the pain is intermittent. He was sitting at rest when the pain started and he has never had any similar episodes in the past. Patient states that he walks approx. 45 mins daily and noticed no change in his exercise tolerance. The patient visited both his PCP and his steel manager today , both of which sent him to the ED for further evaluation. Patient denies SOB, fevers, chills, abdominal pain. Of note, Per the patient's , his steel manager saw some EKG changes today, which contributed to the decision to send him to the ED. The patient also has a stress test this past August which showed "small sized, mild intensity apical lateral reversible perfusion defect c/w ischemia." Ejection fraction at this time was 58%. ER course was notable for: (1) Trop negative x1 (2) EKG sowing no acute changes when compared to previous (3) CXR unchanged from previous Recent Travel: none PAST MEDICAL HISTORY: Nephrolithiasis Dementia PAST SURGICAL HISTORY: lithotrypsy Social History: Smoking: former 40 pack year smoker, quit 20 years ago Alcohol: denies Drugs: denies Family History: patient cannot recall Allergies No Known Drug Allergies Allergy (Verified 03/31/18 18:54) HOME MEDICATIONS: Home Medications Medication Instructions Recorded Allopurinol [Zyloprim -] 100 mg PO DAILY 08/16/17 Aspirin 81 mg PO DAILY 08/16/17 Atenolol [Tenormin -] 50 mg PO BID 08/16/17 Cholecalciferol (Vitamin D3) 1,000 unit PO DAILY 08/16/17 [Vitamin D -] Donepezil HCl 10 mg PO DAILY 08/16/17 Insulin Glargine,Hum.rec.anlog 34 unit SQ HS 08/16/17 [Lantus] Losartan Potassium 100 mg PO HS 08/16/17 Saxagliptin HCl [Onglyza] 2.5 mg PO DAILY 08/16/17 Ubidecarenone [Coenzyme Q-10] 100 mg PO DAILY 08/16/17 Acetaminophen [Tylenol] 650 mg PO QID PRN 03/31/18 Ezetimibe/Simvastatin [Vytorin 1 tab PO DAILY 03/31/18 10-20 mg Tablet] Memantine HCl [Namenda Xr] 28 mg PO DAILY 03/31/18 Nifedipine [Nifedipine ER] 90 mg PO DAILY 03/31/18 REVIEW OF SYSTEMS CONSTITUTIONAL: Absent: fever, chills, diaphoresis, generalized weakness, malaise, loss of appetite, weight change HEENT: Absent: rhinorrhea, nasal congestion, throat pain, throat swelling, difficulty swallowing, mouth swelling, ear pain, eye pain, visual changes CARDIOVASCULAR: Absent: syncope, palpitations, irregular heart rate, lightheadedness, peripheral edema RESPIRATORY: Absent: cough, shortness of breath, dyspnea with exertion, orthopnea, wheezing, stridor, hemoptysis GASTROINTESTINAL: Absent: abdominal pain, abdominal distension, nausea, vomiting, diarrhea, constipation, melena, hematochezia GENITOURINARY: Absent: dysuria, frequency, urgency, hesitancy, hematuria, flank pain, genital pain MUSCULOSKELETAL: Absent: myalgia, arthralgia, joint swelling, back pain, neck pain SKIN: Absent: rash, itching, pallor HEMATOLOGIC/IMMUNOLOGIC: Absent: easy bleeding, easy bruising, lymphadenopathy, frequent infections ENDOCRINE: Absent: unexplained weight gain, unexplained weight loss, heat intolerance, cold intolerance NEUROLOGIC: Absent: headache, focal weakness or paresthesias, dizziness, unsteady gait, seizure, mental status changes, bladder or bowel incontinence PSYCHIATRIC: Absent: anxiety, depression, suicidal or homicidal ideation, hallucinations. PHYSICAL EXAMINATION Vital Signs - 24 hr 07/31/18 07/31/18 07/31/18 17:38 19:10 19:20 Temperature 98.1 F 98.0 F Pulse Rate 68 Pulse Rate [ 60 61 Left Radial] Respiratory 15 14 16 Rate Blood Pressure 120/53 L Blood Pressure 120/68 120/51 L [Left Arm] O2 Sat by Pulse 99 97 97 Oximetry (%) GENERAL: Awake, alert, and fully oriented, in no acute distress. HEAD: Normal with no signs of trauma. EYES: Pupils equal, round and reactive to light, extraocular movements intact, sclera anicteric, conjunctiva clear. No lid lag. LUNGS: Breath sounds equal, clear to auscultation bilaterally. No wheezes, and no crackles. No accessory muscle use. HEART: Regular rate and rhythm, normal S1 and S2 without murmur, rub or gallop. ABDOMEN: Soft, nontender, not distended, normoactive bowel sounds, no guarding, no rebound, no masses. No hepatomegaly or splenomegaly. LOWER EXTREMITIES: 2+ pulses, warm, well-perfused. No calf tenderness. No peripheral edema. NEUROLOGICAL: Cranial nerves II-X intact. Normal speech. SKIN: Warm, dry, normal turgor, no rashes or lesions noted, normal capillary refill. Laboratory Results - last 24 hr 07/31/18 07/31/18 07/31/18 18:46 18:46 18:46 WBC 6.5 RBC 4.93 Hgb 14.5 Hct 42.9 MCV 87.1 MCH 29.4 MCHC 33.7 RDW 13.5 D Plt Count 179 D MPV 9.6 Absolute Neuts (auto) 3.6 Neutrophils % 54.6 Lymphocytes % 28.4 Monocytes % 9.1 Eosinophils % 6.6 H Basophils % 1.3 Nucleated RBC % 0 PT with INR 11.90 INR 1.01 PTT (Actin FS) 30.3 Sodium 142 Potassium 4.3 Chloride 106 Carbon Dioxide 29 Anion Gap 7 L BUN 23 H Creatinine 1.2 Creat Clearance w eGFR 58.86 Random Glucose 199 H Calcium 9.4 Total Bilirubin 0.4 AST 29 ALT 61 Alkaline Phosphatase 110 Creatine Kinase 214 Creatine Kinase Index 1.4 CK-MB (CK-2) 3.2 Troponin I < 0.02 Total Protein 7.4 Albumin 3.7 ASSESSMENT/PLAN: The patient is a 78 yo m w/ PMH HTN, HLD, IDDM who comes into the ED c/o substernal CP for the past 3 days. #Chest pain possibly 2/2 angina, r/o ACS -EKG in ED unchanged -Trop negative x1 -Dr. Monzon consulted from the ED, suggests admit overnight for cards eval in the AM #DM -holding home hypoglycemics -BGM ACHS -ISS ACHS #HTN -resume home Nifedipine 90mg daily -resume home Atenlol 50mg BID -resume home losartan 100mg daily #FEN -no fluids indicated -lytes WNL -diabetic diet #Prophy -heparin 5k units SQ q8h #Dispo -observe on telemetry; cards eval in AM Visit type - Emergency Visit Emergency Visit: Yes Care time: The patient presented to the Emergency Department on the above date and was hospitalized for further evaluation of their emergent condition. - New Patient This patient is new to me today: Yes Date on this admission: 07/31/18 - Critical Care Critical Care patient: No
[2018-07-31] MEDS ORDERED: LOSARTAN POTASSIUM 50 MG TABLET (FP) PO SCH (22:00)
[2018-07-31] MEDS: INSULIN SLIDING SCALE (NOVOLOG) 1 VIAL SQ SCH (22:10)
[2018-07-31] MEDS ORDERED: INSULIN REGULAR HUMAN 100 UNITS/ML *VIAL ONE (22:32)
[2018-07-31] MEDS ORDERED: ATENOLOL 25 MG TABLET (FP) ONE (22:43)
[2018-07-31] MEDS: ATENOLOL 50 MG TABLET (FP) PO SCH (22:44)
[2018-08-01 02:43] VITALS: BMI 25.2
[2018-08-01] MEDS: HEPARIN NA (PORCINE) 5,000 UNITS/ML 1ML VIAL SQ SCH ×2 (06:11→13:26)
[2018-08-01] MEDS: INSULIN SLIDING SCALE (NOVOLOG) 1 VIAL SQ SCH ×2 (06:12→11:49)
[2018-08-01 07:05] LABS: BASO % 0.7 % (0-2.0); EOS % 2.9 % (0-4.5); HEMATOCRIT 43.8 % (35.4-49); HEMOGLOBIN 14.7 GM/dL (11.7-16.9); LYMPH % 21.7 % (8-40); MCH 29.3 pg (25.7-33.7); MCHC 33.7 g/dl (32.0-35.9); MEAN CELL VOLUME 87.2 fl (80-96); MEAN PLT VOLUME 10.1 fl (7.5-11.1); MONO % 8.9 % (3.8-10.2); NEUT % 65.8 % (42.8-82.8); PLATELET COUNT 225 K/MM3 (134-434); RBC 5.02 M/mm3 (4.00-5.60); RDW 13.9 % (11.9-15.9); WHITE BLOOD COUNT 9.8 K/mm3 (4.0-10.0)
[2018-08-01 07:30] LABS: INR 1.08 (0.83-1.09); PROTHROMBIN TIME (PATIENT) 12.7 SEC (9.7-13.0)
[2018-08-01 07:32] LABS: ANION GAP 9 MMOL/L (8-16); BLOOD UREA NITROGEN 21 mg/dL (7-18); CALCIUM 9.1 mg/dL (8.5-10.1); CHLORIDE 107 mmol/L (98-107); CO2 29 mmol/L (21-32); CREATININE 1.2 mg/dL (0.55-1.3); GLUCOSE,RANDOM 98 mg/dL (74-106); MAGNESIUM 2.1 mg/dL (1.8-2.4); PHOSPHOROUS 3.7 mg/dL (2.5-4.9); POTASSIUM 3.7 mmol/L (3.5-5.1); SODIUM 144 mmol/L (136-145)
[2018-08-01 07:33] LABS: ACTIVATED PTT 30.5 SECONDS (25.2-36.5)
[2018-08-01 07:40] LABS: CHOLESTEROL 172 mg/dL (50-200); HDL CHOLESTEROL 38 mg/dL (40-60); TRIGLYCERIDES 177 mg/dL (0-150)
[2018-08-01] MEDS: ATENOLOL 50 MG TABLET (FP) PO SCH (09:18)
[2018-08-01 09:23] VITALS: PULSE 70; TEMP 98
--- NOTE | 2018-08-01 09:32 | CON.CARD ---
Consult Consult Specialty:: Cardiology Referred by:: Medicine Reason for Consultation:: chest pain - History of Present Illness Chief Complaint: chest pain History of Present Illness: 78M h/o HTN, HLD, DM p/w 3 days of chest pain, dull, nonradiating, improved with aspirin. No exacerbating or relieving factors, intermittent pain episodes. No change in exercise tolerance. Sees Dr Hernandez for cardio, went to office yesterday and was advised to go to the ER for further evaluation. No sob, palps, dizziness. - Past Medical History [employer]: Yes: Dementia Cardio/Vascular: Yes: HTN Endocrine: Yes: Diabetes Mellitus - Past Surgical History Past Surgical History: Yes: None - Alcohol/Substance Use Hx Alcohol Use: No History of Substance Use: reports: None - Smoking History Smoking history: Former smoker Have you smoked in the past 12 months: No If you are a former smoker, when did you quit?: 20 yrs ago - Social History ADL: Independent History of Recent Travel: No Home Medications - Allergies Allergies/Adverse Reactions: Allergies Allergy/AdvReac Type Severity Reaction Status Date / Time No Known Drug Allergies Allergy Verified 03/31/18 18:54 - Home Medications Home Medications: Ambulatory Orders Allopurinol [Zyloprim -] 100 mg PO DAILY 08/16/17 Aspirin 81 mg PO DAILY 08/16/17 Atenolol [Tenormin -] 50 mg PO BID 08/16/17 Cholecalciferol (Vitamin D3) [Vitamin D -] 1,000 unit PO DAILY 08/16/17 Donepezil HCl 10 mg PO DAILY 08/16/17 Insulin Glargine,Hum.rec.anlog [Lantus] 34 unit SQ HS 08/16/17 Losartan Potassium 100 mg PO HS 08/16/17 Saxagliptin HCl [Onglyza] 2.5 mg PO DAILY 08/16/17 Ubidecarenone [Coenzyme Q-10] 100 mg PO DAILY 08/16/17 Acetaminophen [Tylenol] 650 mg PO QID PRN 03/31/18 Ezetimibe/Simvastatin [Vytorin 10-20 mg Tablet] 1 tab PO DAILY 03/31/18 Memantine HCl [Namenda Xr] 28 mg PO DAILY 03/31/18 Nifedipine [Nifedipine ER] 90 mg PO DAILY 03/31/18 Family Disease History - Family Disease History Family History: Unremarkable Review of Systems - Review of Systems Constitutional: reports: No Symptoms Eyes: reports: No Symptoms HENT: reports: No Symptoms Neck: reports: No Symptoms Cardiovascular: reports: No Symptoms Respiratory: reports: No Symptoms Gastrointestinal: reports: No Symptoms Genitourinary: reports: No Symptoms Musculoskeletal: reports: No Symptoms Integumentary: reports: No Symptoms Neurological: reports: No Symptoms Endocrine: reports: No Symptoms Hematology/Lymphatic: reports: No Symptoms Psychiatric: reports: No Symptoms Vital Signs: Vital Signs Temperature 98.0 F 08/01/18 09:22 Pulse Rate 70 08/01/18 09:22 Respiratory Rate 16 08/01/18 09:22 Blood Pressure 145/74 08/01/18 09:22 O2 Sat by Pulse Oximetry (%) 96 08/01/18 03:08 Constitutional: Yes: Well Nourished, No Distress, Calm Eyes: Yes: Conjunctiva Clear, EOM Intact HENT: Yes: Atraumatic, Normocephalic Neck: Yes: Supple, Trachea Midline Respiratory: Yes: Regular, CTA Bilaterally Gastrointestinal: Yes: Normal Bowel Sounds, Soft Cardiovascular: Yes: Regular Rate and Rhythm JVD: No Carotid Bruit: No PMI: Non-Displaced Heart Sounds: Yes: S1, S2 Musculoskeletal: No: Back Pain Extremities: No: Cold Edema: No Peripheral Pulses WNL: Yes Peripheral Pulses: 2+ Left Doralis Pedis, 2+ Right Dorsalis Pedis Integumentary: No: Jaundice Neurological: Yes: Alert, Oriented Psychiatric: Yes: Alert, Oriented - Other Data Labs, Other Data: CBC, BMP 08/01/18 06:15 08/01/18 06:15 INR, PTT INR 1.08 (0.83-1.09) 08/01/18 06:15 Troponin, BNP 07/31/18 08/01/18 18:46 06:15 Troponin I < 0.02 < 0.02 Troponin, BNP 07/31/18 08/01/18 18:46 06:15 Troponin I < 0.02 < 0.02 Assessment/Plan EKG:sinus, nl intervals, no ischemic changes echo 08/2017 nl LV fn, mild to mod MR, E/A reversal, mod TR mibi 08/2017 small, mild intensity apical lateral reversible perfusion defect c/ w ischemia, EF 58% tele: sinus 78M h/o HTN, HLD, DM p/w chest pain Chest pain - trop neg x 2, EKG no ischemic changes - mibi last year with small, mild ischemia nl EF - given multiple admissions and office visits for same with risk factors for CAD and history of positive stress test will evaluate with cardiac cath, transfer to [facility] DM - manage per primary HTN - stable on current meds, continue HLD - cont statin, zetia
[2018-08-01] MEDS ORDERED: NIFEdipine E.R. 90 MG TABLET (FP) PO SCH (10:00)
[2018-08-01] MEDS ORDERED: PATIENT'S OWN MEDICATION (NON-FORMULARY) (Memantine Hcl [Namenda Xr] 28 MG) PO SCH (10:00)
[2018-08-01] MEDS ORDERED: ALLOPURINOL 100 MG TABLET (FP) PO SCH (10:00)
[2018-08-01] MEDS ORDERED: EZETIMIBE 10 MG TABLET (FP) PO SCH (10:00)
[2018-08-01] MEDS ORDERED: ASPIRIN 81 MG CHEWABLE TABLETS PO SCH (10:00)
[2018-08-01] MEDS ORDERED: PT OWN MED DRAWER 7, Y5N ONE ×2 (10:29→13:09)
--- NOTE | 2018-08-01 11:35 | ECHO ---
Name: SUSHIL LYLESMARIA VICTORIAKhai Wahl Exam:Adult Echocardiogram Study Date: 08/01/2018 08:18 AM Age: 78 yrs Reason For Study: Chest pain Height: 66 in Weight: 155 lb BSA: 1.8 m2 MMode/2D Measurements & Calculations IVSd: 1.0 cm Ao root diam: 2.5 cm LVIDd: 4.7 cm LA dimension: 3.7 cm LVIDs: 2.5 cm LVPWd: 1.0 cm EDV(Teich): 104.7 ml LAV (MOD-bp): 56.9 ml ESV(Teich): 21.8 ml Doppler Measurements & Calculations MV E max refugio: 74.2 cm/sec MR max refugio: 444.6 cm/sec MV A max refugio: 100.4 cm/sec MR max P.2 mmHg MV E/A: 0.74 MV dec time: 0.12 sec TR max refugio: 272.8 cm/sec Med Peak E' Refugio: 5.8 cm/sec TR max P.0 mmHg Med E/e': 12.9 Lat Peak E' Refugio: 9.8 cm/sec Lat E/e': 7.6 PI Vmax: 175.8 cm/sec Procedure A two-dimensional transthoracic echocardiogram with color flow and Doppler was performed. The patient was in normal sinus rhythm during the exam. Left Ventricle The left ventricle is normal in size. Left ventricular systolic function is normal. Ejection Fraction = 65%. E/A reversal consistent with but not diagnostic of poor LV compliance. Right Ventricle The right ventricle is normal size. The right ventricular systolic function is normal. Atria The left atrial size is normal. Right atrial size is normal. Mitral Valve There is mild mitral annular calcification. There is mild mitral valve thickening. There is mild mitr al regurgitation. Tricuspid Valve The tricuspid valve is normal. There is mild tricuspid regurgitation. Right ventricular systolic pres sure is elevated at 40 mmhg. Aortic Valve The aortic valve is normal in structure and function. The aortic valve is trileaflet. The aortic valv e opens well. Trace aortic regurgitation. Pulmonic Valve The pulmonic valve is not well seen, but is grossly normal. Trace pulmonic valvular regurgitation. Great Vessels The aortic root is normal size. Pericardium/Pleura There is no pericardial effusion. Interpretation Summary Left ventricular systolic function is normal. E/A reversal consistent with but not diagnostic of poor LV compliance The right ventricular systolic function is normal. There is mild mitral annular calcification. There is mild mitral valve thickening. There is mild mitral regurgitation. There is mild tricuspid regurgitation. Right ventricular systolic pressure is elevated at 40 mmhg. Trace aortic regurgitation. Trace pulmonic valvular regurgitation. There is no pericardial effusion. MD Héctor Washington 08/01/2018 11:34 AM
--- NOTE | 2018-08-01 12:16 | EKG ---
Test Reason : Blood Pressure : / mmHG Vent. Rate : 066 BPM Atrial Rate : 066 BPM P-R Int : 156 ms QRS Dur : 070 ms QT Int : 398 ms P-R-T Axes : 058 040 080 degrees QTc Int : 417 ms NORMAL SINUS RHYTHM NONSPECIFIC ST AND T WAVE ABNORMALITY ABNORMAL ECG Confirmed by MD GINA, ALEXANDRIA ([id number]) on 08/01/2018 12:16:11 PM Referred By: Confirmed By:ALEXANDRIA FUENTES MD
--- NOTE | 2018-08-01 12:17 | EKG ---
Test Reason : Blood Pressure : / mmHG Vent. Rate : 066 BPM Atrial Rate : 066 BPM P-R Int : 158 ms QRS Dur : 084 ms QT Int : 380 ms P-R-T Axes : 054 056 072 degrees QTc Int : 398 ms NORMAL SINUS RHYTHM MINIMAL VOLTAGE CRITERIA FOR LVH, MAY BE NORMAL VARIANT NONSPECIFIC ST AND T WAVE ABNORMALITY ABNORMAL ECG Confirmed by MD GINA, ALEXANDRIA ([id number]) on 08/01/2018 12:16:43 PM Referred By: Confirmed By:ALEXANDRIA FUENTES MD
--- NOTE | 2018-08-01 12:34 | PN ---
Teaching Attending Note Name of Resident: Thom Menon ATTENDING PHYSICIAN STATEMENT I saw and evaluated the patient. I reviewed the resident's note and discussed the case with the resident. I agree with the resident's findings and plan as documented. SUBJECTIVE: denies Cp or SOB. has no fever or chills. repoerts that his PC occured at rrest and lasted 10 min. he reports previous similar episodes Now, chest pain free. OBJECTIVE: NAD, awake, alert, oriented x 2. CV: RRR, no MRG Lungs: CTAB EXt : no edema or erythema. Abd: soft, NT, ND , NL BS ASSESSMENT AND PLAN: 78 y/o man with h/o HTN, CAD, HLP, dementia and nephrolithiasis who presented with CP . 1- CP: could be due to unstable angina given his positive stress test in past year., . of course pain could be atypical as he is not the best historian. - EKG with TWI in A, AVL but this is not changed form before. - d/w Dr. Rene, transfer for cath - increase lipitor to 40 given LDL above goal - cont BB and ARB - cont ASA - echo 2- HTN: cont BB and ARB 3- DM : hypoglycemic this am. will hold HS lantus and cont SSi . if sugar is becoming elevated thi safternoon can give small dose of levemir 4- dispo : Tx to [facility]
--- NOTE | 2018-08-01 13:25 | PN ---
Physical Exam: SUBJECTIVE: Patient seen and examined at bedside. No acute events overnight. Chest pain has resolved. Denies sob, abd pain, urinary/bowel symptoms. Has no symptomatic complaints. OBJECTIVE: Vital Signs Temperature 98.0 F 08/01/18 09:22 Pulse Rate 70 08/01/18 09:22 Respiratory Rate 16 08/01/18 09:22 Blood Pressure 145/74 08/01/18 09:22 O2 Sat by Pulse Oximetry (%) 98 08/01/18 13:00 GENERAL: Awake, alert, and fully oriented, in no acute distress. HEAD: Normal with no signs of trauma. EYES: Pupils equal, round and reactive to light, extraocular movements intact, sclera anicteric, conjunctiva clear. No lid lag. LUNGS: Breath sounds equal, clear to auscultation bilaterally. No wheezes, and no crackles. No accessory muscle use. HEART: Regular rate and rhythm, normal S1 and S2 without murmur, rub or gallop. ABDOMEN: Soft, nontender, not distended, normoactive bowel sounds, no guarding, no rebound, no masses. No hepatomegaly or splenomegaly. LOWER EXTREMITIES: 2+ pulses, warm, well-perfused. No calf tenderness. No peripheral edema. NEUROLOGICAL: Cranial nerves II-X intact. Normal speech. SKIN: Warm, dry, normal turgor, no rashes or lesions noted, normal capillary refill. CBC, BMP 08/01/18 06:15 08/01/18 06:15 Active Medications Allopurinol (Zyloprim -) 100 mg PO DAILY [facility] Last Admin: 08/01/18 09:18 Dose: 100 mg Aspirin (Asa -) 81 mg PO DAILY [facility] Last Admin: 08/01/18 09:18 Dose: 81 mg Atenolol (Tenormin -) 50 mg PO BID [facility] Last Admin: 08/01/18 09:18 Dose: 50 mg Atorvastatin Calcium (Lipitor -) 40 mg PO HS [facility] Donepezil HCl (Aricept -) 10 mg PO HS [facility] Ezetimibe (Zetia -) 10 mg PO DAILY [facility] Heparin Sodium (Porcine) (Heparin -) 5,000 unit SQ TID [facility] Last Admin: 08/01/18 06:11 Dose: 5,000 unit Insulin Aspart (Novolog Vial Sliding Scale -) 1 vial SQ TIDAC [facility]; Protocol Losartan Potassium (Cozaar -) 100 mg PO HS [facility] Last Admin: 07/31/18 22:50 Dose: 100 mg Nifedipine (Procardia Xl -) 90 mg PO DAILY [facility] Last Admin: 08/01/18 09:18 Dose: 90 mg Non-Formulary Medication (Memantine Hcl [Namenda Xr]) 28 mg PO DAILY [facility] ASSESSMENT/PLAN: The patient is a 78 yo m w/ PMH HTN, HLD, IDDM who comes into the ED c/o substernal CP for the past 3 days. #Chest pain possibly 2/2 angina, r/o ACS -EKG in ED unchanged -Trop negative x2 -Per cardio, #DM -holding home hypoglycemics -BGM ACHS -ISS ACHS #HTN Cont home meds: Nifedipine 90mg daily, Atenolol 50mg BID, Losartan 100mg daily #FEN -no fluids indicated -lytes WNL -diabetic diet #Prophy -heparin 5k units SQ q8h #Dispo -observe on telemetry -Per cardio, tx to [facility] for cath
[2018-08-01 14:58] VITALS: BP 143/68
[2018-08-01] MEDS ORDERED: INSULIN SLIDING SCALE (NOVOLOG) 1 VIAL SQ SCH (16:30)
--- NOTE | 2018-08-01 17:59 | DS ---
Physical Exam: SUBJECTIVE: Patient seen and examined at bedside. No acute events overnight. OBJECTIVE: Vital Signs Period Temp Pulse Resp BP Sys/Ugarte Pulse Ox Last 24 Hr 97.9 F-98.1 F 60-70 14-20 120-145/51-74 96-99 PHYSICAL EXAM GENERAL: Awake, alert, and fully oriented, in no acute distress. HEAD: Normal with no signs of trauma. EYES: Pupils equal, round and reactive to light, extraocular movements intact, sclera anicteric, conjunctiva clear. No lid lag. LUNGS: Breath sounds equal, clear to auscultation bilaterally. No wheezes, and no crackles. No accessory muscle use. HEART: Regular rate and rhythm, normal S1 and S2 without murmur, rub or gallop. ABDOMEN: Soft, nontender, not distended, normoactive bowel sounds, no guarding, no rebound, no masses. No hepatomegaly or splenomegaly. LOWER EXTREMITIES: 2+ pulses, warm, well-perfused. No calf tenderness. No peripheral edema. NEUROLOGICAL: Cranial nerves II-X intact. Normal speech. SKIN: Warm, dry, normal turgor, no rashes or lesions noted, normal capillary refill. LABS Laboratory Results - last 24 hr 07/31/18 07/31/18 07/31/18 18:46 18:46 18:46 WBC 6.5 RBC 4.93 Hgb 14.5 Hct 42.9 MCV 87.1 MCH 29.4 MCHC 33.7 RDW 13.5 D Plt Count 179 D MPV 9.6 Absolute Neuts (auto) 3.6 Neutrophils % 54.6 Lymphocytes % 28.4 Monocytes % 9.1 Eosinophils % 6.6 H Basophils % 1.3 Nucleated RBC % 0 PT with INR 11.90 INR 1.01 PTT (Actin FS) 30.3 Sodium 142 Potassium 4.3 Chloride 106 Carbon Dioxide 29 Anion Gap 7 L BUN 23 H Creatinine 1.2 Creat Clearance w eGFR 58.86 POC Glucometer Random Glucose 199 H Calcium 9.4 Phosphorus Magnesium Total Bilirubin 0.4 AST 29 ALT 61 Alkaline Phosphatase 110 Creatine Kinase 214 Creatine Kinase Index 1.4 CK-MB (CK-2) 3.2 Troponin I < 0.02 Total Protein 7.4 Albumin 3.7 Triglycerides Cholesterol Total LDL Cholesterol HDL Cholesterol 07/31/18 08/01/18 08/01/18 22:12 06:11 06:15 WBC 9.8 RBC 5.02 Hgb 14.7 Hct 43.8 MCV 87.2 MCH 29.3 MCHC 33.7 RDW 13.9 Plt Count 225 D MPV 10.1 Absolute Neuts (auto) 6.5 Neutrophils % 65.8 D Lymphocytes % 21.7 D Monocytes % 8.9 Eosinophils % 2.9 Basophils % 0.7 Nucleated RBC % 0 PT with INR INR PTT (Actin FS) Sodium Potassium Chloride Carbon Dioxide Anion Gap BUN Creatinine Creat Clearance w eGFR POC Glucometer 341.73160 70 Random Glucose Calcium Phosphorus Magnesium Total Bilirubin AST ALT Alkaline Phosphatase Creatine Kinase Creatine Kinase Index CK-MB (CK-2) Troponin I Total Protein Albumin Triglycerides Cholesterol Total LDL Cholesterol HDL Cholesterol 08/01/18 08/01/18 08/01/18 06:15 06:15 06:15 WBC RBC Hgb Hct MCV MCH MCHC RDW Plt Count MPV Absolute Neuts (auto) Neutrophils % Lymphocytes % Monocytes % Eosinophils % Basophils % Nucleated RBC % PT with INR 12.70 INR 1.08 PTT (Actin FS) 30.5 Sodium 144 Potassium 3.7 Chloride 107 Carbon Dioxide 29 Anion Gap 9 BUN 21 H Creatinine 1.2 Creat Clearance w eGFR 58.86 POC Glucometer Random Glucose 98 Calcium 9.1 Phosphorus 3.7 Magnesium 2.1 Total Bilirubin AST ALT Alkaline Phosphatase Creatine Kinase Creatine Kinase Index CK-MB (CK-2) Troponin I < 0.02 Total Protein Albumin Triglycerides 177 H Cholesterol 172 Total LDL Cholesterol 101 H HDL Cholesterol 38 L 08/01/18 11:45 WBC RBC Hgb Hct MCV MCH MCHC RDW Plt Count MPV Absolute Neuts (auto) Neutrophils % Lymphocytes % Monocytes % Eosinophils % Basophils % Nucleated RBC % PT with INR INR PTT (Actin FS) Sodium Potassium Chloride Carbon Dioxide Anion Gap BUN Creatinine Creat Clearance w eGFR POC Glucometer 226 Random Glucose Calcium Phosphorus Magnesium Total Bilirubin AST ALT Alkaline Phosphatase Creatine Kinase Creatine Kinase Index CK-MB (CK-2) Troponin I Total Protein Albumin Triglycerides Cholesterol Total LDL Cholesterol HDL Cholesterol HOSPITAL COURSE: Date of Admission:07/31/18 The patient is a 78 yo m w/ PMH HTN, HLD, IDDM who came into the ED c/o substernal CP for 3 days. EKG was done that did not show any significant ischemic changes, trops were neg x2. Per previous history, pt stated he had echo done 08/21 that showed nl LV fn, mild to mod MR, E/A reversal, mod TR, which was repeated this admission with no change. Additionally, per previous history, pt had stress MIBI done that showed small, mild intensity apical lateral reversible perfusion defect c/w ischemia, EF 58%. Pt was evaluated by cardio and due to multiple cardiac risk factors for CAD and hx of positive stress test, pt was subsequently transferred to [facility] for cardiac cath. Date of Discharge: 08/01/18 Minutes to complete discharge: 40 Discharge Summary Reason For Visit: CHEST PAIN Condition: Guarded - Instructions Diet, Activity, Other Instructions: long acting insulin held due to hypoglycemia. Zocor was switched to Lipitor 40 mg. Referrals: Zari Mistry MD [Primary Care Provider] - Disposition: TRANSFER ACUTE CARE/OTHER HOSP - Home Medications Comprehensive Discharge Medication List: Ambulatory Orders Aspirin 81 mg PO DAILY 08/16/17 Atenolol [Tenormin -] 50 mg PO BID 08/16/17 Cholecalciferol (Vitamin D3) [Vitamin D -] 1,000 unit PO DAILY 08/16/17 Donepezil HCl 10 mg PO DAILY 08/16/17 Insulin Glargine,Hum.rec.anlog [Lantus] 34 unit SQ HS 08/16/17 Losartan Potassium 100 mg PO HS 08/16/17 Saxagliptin HCl [Onglyza] 2.5 mg PO DAILY 08/16/17 Ubidecarenone [Coenzyme Q-10] 100 mg PO DAILY 08/16/17 Acetaminophen [Tylenol] 650 mg PO QID PRN 03/31/18 Ezetimibe/Simvastatin [Vytorin 10-20 mg Tablet] 1 tab PO DAILY 03/31/18 Memantine HCl [Namenda Xr] 28 mg PO DAILY 03/31/18 Nifedipine [Nifedipine ER] 90 mg PO DAILY 03/31/18 This patient is new to me today: Yes Date on this admission: 08/01/18 Emergency Visit: Yes ED Registration Date: 07/31/18 Care time: The patient presented to the Emergency Department on the above date and was hospitalized for further evaluation of their emergent condition. Critical Care patient: No - Discharge Referral Referred to [facility] Med P.C.: No
[2018-08-01] MEDS ORDERED: ATORVASTATIN CA 10 MG TABLET (FP) PO SCH (22:00)
[2018-08-01] MEDS ORDERED: ATORVASTATIN CA 40 MG TABLET (FP) PO SCH (22:00)
[2018-08-01] MEDS ORDERED: DONEPEZIL HCL 10 MG TABLET (FP) PO SCH (22:00)
== END 2018-08-01 16:31 | disposition short-term general hospital (02) ==
LOC: JER 17:25 → JERBED 19:42 → J4S 08-01 01:59
PROVIDERS: ADMIT Internal Medicine; ATTEND Internal Medicine
PROC: 3E013VG Introduction of Insulin into Subcutaneous Tissue, Percutaneous Approach (ICD-10-PCS; principal; 2018-07-31)
PROC: 3E013GC Introduction of Other Therapeutic Substance into Subcutaneous Tissue, Percutaneous Approach (ICD-10-PCS; 2018-07-31)
DX: R07.9 Chest pain, unspecified (principal); I10 Essential (primary) hypertension; E78.5 Hyperlipidemia, unspecified; E11.9 Type 2 diabetes mellitus without complications; F03.90 Unspecified dementia, unspecified severity, without behavioral disturbance, psychotic disturbance, mood disturbance, and anxiety; Z79.4 Long term (current) use of insulin; Z79.84 Long term (current) use of oral hypoglycemic drugs; Z87.442 Personal history of urinary calculi; Z87.891 Personal history of nicotine dependence
CPT/HCPCS: 36415; 71045-TC-FY; 80048; 80053; 80061; 82550; 82553; 82962; 83721; 83735; 84100; 84484; 85025; 85610; 85730; 93005; 93010; 93306-TC; 96372; 99285-25; G0378; J1644

== ENCOUNTER 2018-09-06 17:57 | Emergency (ER) | payer OTHER ==
[2018-09-06 18:26] VITALS: BMI 25.0
--- NOTE | 2018-09-06 18:26 | PDOC ---
Rapid Medical Evaluation Chief Complaint: Blood Sugar Problem Time Seen by Provider: 09/06/18 18:21 Medical Evaluation: Allergies Allergy/AdvReac Type Severity Reaction Status Date / Time No Known Drug Allergies Allergy Verified 03/31/18 18:54 09/06/18 18:21 78 year old male today noted to have blood glucose to be 499. denies NVD. patient increasing confused as per . Pe: patient alert A: hyperglycemia P: Labs patient to the ER for further management of infection Discharge Disposition - Diagnosis Hyperglycemia - Referrals - Patient Instructions - Post Discharge Activity
[2018-09-06 18:43] LABS: URINE APPEARANCE CLEAR; URINE BILIRUBIN NEGATIVE (<2.0 mg/dL); URINE COLOR STRAW; URINE GLUCOSE (UA) 3+ (NEGATIVE); URINE KETONE NEGATIVE (NEGATIVE); URINE LEUK ESTERASE NEGATIVE (NEGATIVE); URINE NITRITE NEGATIVE (NEGATIVE); URINE PROTEIN 2+ (NEGATIVE); URINE UROBILINOGEN NEGATIVE mg/dL (0.2-1.0)
--- NOTE | 2018-09-06 18:52 | PDOC ---
History of Present Illness - General History Source: Patient, Spouse Exam Limitations: No Limitations - History of Present Illness Initial Comments: 09/06/18 19:13 The patient is a 79 year old male with a significant past medical history of dementia, hypertension, hyperlipidemia, diabetes and kidney stones who presents to the emergency department with hyperglycemia for about 3 days. As per the patient's , the patient usually takes his blood sugar several times a day. The patient's states that the patients baseline blood sugar ranges from 100 -200s. The patient and his states that his blood sugar reads have been in the 400s and 500s for the past 3 days. The patient denies any chest pain, shortness of breath, nausea, vomiting, diarrhea, constipation or headache . the patient's denies any recent travel or sick contact as it has to do with the patient. The patient's reports that the patient was recently hospitalized 3 weeks ago for a cardiac cath secondary to chest pain (no stents placed). No other symptoms or complaints are reports. <Rafael Mariee - Last Filed: 09/06/18 19:25> <Ruben Chavez - Last Filed: 09/06/18 22:52> - General Chief Complaint: Blood Sugar Problem Stated Complaint: HYPERGLYCEMIA Time Seen by Provider: 09/06/18 18:21 Past History <Rafael Mariee - Last Filed: 09/06/18 19:25> - Past Medical History Anemia: No Asthma: No Cancer: No Cardiac Disorders: No CVA: No COPD: No CHF: No DVT: No Dementia: Yes Diabetes: Yes GI Disorders: No Disorders: Yes (KIDNEY STONES) HTN: Yes Hypercholesterolemia: Yes Kidney Stones: Yes Liver Disease: No Seizures: No Thyroid Disease: No - Surgical History Abdominal Surgery: No Appendectomy: No Cardiac Surgery: No Cholecystectomy: No Lung Surgery: No Neurologic Surgery: No Orthopedic Surgery: No - Suicide/Smoking/Psychosocial Hx Smoking History: Former smoker Have you smoked in the past 12 months: No If you are a former smoker, when did you quit?: 20 yrs ago Information on smoking cessation initiated: No Hx Alcohol Use: No Drug/Substance Use Hx: No Substance Use Type: None Hx Substance Use Treatment: No <Ruben Chavez - Last Filed: 09/06/18 22:52> - Past Medical History Allergies/Adverse Reactions: Allergies Allergy/AdvReac Type Severity Reaction Status Date / Time No Known Drug Allergies Allergy Verified 09/06/18 18:21 Home Medications: Ambulatory Orders Aspirin 81 mg PO DAILY 08/16/17 Atenolol [Tenormin -] 50 mg PO BID 08/16/17 Cholecalciferol (Vitamin D3) [Vitamin D -] 1,000 unit PO DAILY 08/16/17 Donepezil HCl 10 mg PO DAILY 08/16/17 Insulin Glargine,Hum.rec.anlog [Lantus] 34 unit SQ HS 08/16/17 Losartan Potassium 100 mg PO HS 08/16/17 Saxagliptin HCl [Onglyza] 2.5 mg PO DAILY 08/16/17 Ubidecarenone [Coenzyme Q-10] 100 mg PO DAILY 08/16/17 Acetaminophen [Tylenol] 650 mg PO QID PRN 03/31/18 Ezetimibe/Simvastatin [Vytorin 10-20 mg Tablet] 0.5 tab PO DAILY 03/31/18 Memantine HCl [Namenda Xr] 28 mg PO DAILY 03/31/18 Nifedipine [Nifedipine ER] 90 mg PO DAILY 03/31/18 Review of Systems - Review of Systems Able to Perform ROS?: Yes Comments:: 09/06/18 19:13 CONSTITUTIONAL: (+)hyperglycemia. No fever, no chills, no fatigue EYES: No visual changes ENT: No ear pain, no sore throat CARDIOVASCULAR: No chest pain, no palpitations RESPIRATORY: No cough, no SOB GI: No abdominal pain, no nausea, no vomiting, no constipation, no diarrhea GENITOURINARY: No dysuria, no frequency, no hematuria MUSKULOSKELETAL: No backpain, no joint pain, no myalgias SKIN: No rash NEURO: No headache <Rafael Mariee - Last Filed: 09/06/18 19:25> *Physical Exam - Vital Signs Last Vital Signs Temp Pulse Resp BP Pulse Ox 98.6 F 77 20 135/66 98 09/06/18 18:23 09/06/18 18:23 09/06/18 18:23 09/06/18 18:23 09/06/18 18:23 - Physical Exam Comments: 09/06/18 19:13 CONSTITUTIONAL: (+)oriented to self (not place or date.) Well-appearing; well- nourished; in no apparent distress HEAD: Normocephalic; atraumatic EYES: PERRL; EOM intact ENMT: External appears normal; normal oropharynx NECK: Supple; non-tender; no cervical lymphadenopathy CARD: Normal S1, S2; no murmurs, rubs, or gallops RESP: Normal chest excursion with respiration; breath sounds clear and equal bilaterally; no wheezes, rhonchi, or rales ABD: Soft, non-distended; non-tender; no palpable organomegaly, no palpable hernias EXT: Normal ROM in all four extremities; non-tender to palpation; distal pulses intact SKIN: Warm, dry, no rash NEURO: No focal neurological deficiencies. <Rafael Mariee - Last Filed: 09/06/18 19:25> - Vital Signs Last Vital Signs Temp Pulse Resp BP Pulse Ox 98.6 F 77 20 135/66 98 09/06/18 18:23 09/06/18 18:23 09/06/18 18:23 09/06/18 18:23 09/06/18 18:23 <Ruben Chavez - Last Filed: 09/06/18 22:52> Moderate Sedation - Procedure Monitoring Vital Signs: Procedure Monitoring Vital Signs Temperature 98.6 F 09/06/18 18:23 Pulse Rate 77 09/06/18 18:23 Respiratory Rate 20 09/06/18 18:23 Blood Pressure 135/66 09/06/18 18:23 O2 Sat by Pulse Oximetry (%) 98 09/06/18 18:23 <Rafael Mariee - Last Filed: 09/06/18 19:25> - Procedure Monitoring Vital Signs: Procedure Monitoring Vital Signs Temperature 98.6 F 09/06/18 18:23 Pulse Rate 77 09/06/18 18:23 Respiratory Rate 20 09/06/18 18:23 Blood Pressure 135/66 09/06/18 18:23 O2 Sat by Pulse Oximetry (%) 98 09/06/18 18:23 <Ruben Chavez - Last Filed: 09/06/18 22:52> Heart Score/ECG Review - ECG Intrepretation Comment:: 09/06/18 19:25 Normal sinus rhythm Normal ECG Vent rate: 65 bpm AR interval:147ms QRS Duration: 68ms QT/QTc:402/418 Documentation prepared by Rafael Mariee, acting as medical billing and coding specialist for Ruben Chavez MD. <Rafael Mariee - Last Filed: 09/06/18 19:25> ED Treatment Course - ADDITIONAL ORDERS Additional order review: Laboratory Results 09/06/18 18:30 Urine Color Straw Urine Appearance Clear Urine pH 5.0 Ur Specific [place] 1.025 Urine Protein 2+ H Urine Glucose (UA) 3+ H Urine Ketones Negative Urine Blood Negative Urine Nitrite Negative Urine Bilirubin Negative Urine Urobilinogen Negative Ur Leukocyte Esterase Negative Urine WBC (Auto) 1 Urine RBC (Auto) <1 Ur Epithelial Cells Rare Urine Mucus Rare <Rafael Mariee - Last Filed: 09/06/18 19:25> - LABORATORY CBC & Chemistry Diagram: 09/06/18 20:30 09/06/18 20:30 <Ruben Chavez - Last Filed: 09/06/18 22:52> Medical Decision Making - Medical Decision Making 09/06/18 22:49 Patient is a 78-year-old male with history of advanced dementia, diabetes, hypercholesterolemia who presents to the ER with several days of elevated blood sugar measurements. Patient denies chest pain/abdominal pain/headache/nausea/ vomiting/fever/chills. In the ED, patient is awake and alert, oriented to self only which is patient's baseline. Vital signs are noted. He is afebrile. CBC reveals no evidence of significant leukocytosis. CMP reveals intact renal function, but minimally elevated LFTs. Urinalysis shows no evidence of pyuria. Chest x-ray reveals no evidence of infiltrate or effusion. Right upper quadrant ultrasound shows dense hepatic echotexture which may be related to fatty liver and hepatocellular disease. Patient is also on statin. Blood sugar is noted to be 2:30 without intervention. I discussed the findings with the patient and his who expressed understanding. At this time there is no indication for aggressive hypoglycemic therapy patient will be discharged with urgent follow- up. <Ruben Chavez - Last Filed: 09/06/18 22:52> *DC/Admit/Observation/Transfer - Attestations Scribe Attestion: 09/06/18 19:13 Documentation prepared by Rafael Mariee, acting as medical billing and coding specialist for Ruben Chavez MD. <Rafael Mariee - Last Filed: 09/06/18 19:25> - Attestations Physician Attestion: 09/06/18 22:49 The documentation was prepared by the scribe under my direct supervision. I have reviewed the documentation which correctly represents the findings, medical decision-making and critical action taken by me. <Ruben Chavez - Last Filed: 09/06/18 22:52> Diagnosis at time of Disposition: Hyperglycemia, Abnormal LFTs - Discharge Dispostion Disposition: HOME Condition at time of disposition: Stable - Referrals Referrals: Zari Mistry MD [Primary Care Provider] - - Patient Instructions Printed Discharge Instructions: DI for Hyperglycemia -- Adult, Liver Function Tests Additional Instructions: You have mildly elevated liver function tests. Please follow-up with your primary care doctor for reevaluation. Return immediately for severe abdominal pain, nausea, vomiting. - Post Discharge Activity
[2018-09-06 18:54] LABS: EPI CELLS RARE /HPF (FEW); URINE MUCUS RARE
[2018-09-06] MEDS ORDERED: SODIUM CHLORIDE 500 ML IV STA (19:18)
[2018-09-06 20:45] LABS: BASO % 0.3 % (0-2.0); EOS % 5.8 % (0-4.5); HEMOGLOBIN 14.5 GM/dL (11.7-16.9); LYMPH % 23.9 % (8-40); MCH 29.9 pg (25.7-33.7); MCHC 33.8 g/dl (32.0-35.9); MEAN CELL VOLUME 88.4 fl (80-96); MEAN PLT VOLUME 9.8 fl (7.5-11.1); MONO % 9.4 % (3.8-10.2); NEUT % 60.6 % (42.8-82.8); PLATELET COUNT 198 K/MM3 (134-434); RBC 4.86 M/mm3 (4.00-5.60); RDW 14.1 % (11.9-15.9); WHITE BLOOD COUNT 6.9 K/mm3 (4.0-10.0)
[2018-09-06 20:46] LABS: VENOUS PC02 51.5 mmHg (38-52); VENOUS PH 7.33 (7.32-7.42); VENOUS PO2 25.1 mmHg (28-48)
[2018-09-06 21:05] LABS: INR 1.06 (0.83-1.09); PROTHROMBIN TIME (PATIENT) 12.5 SEC (9.7-13.0)
[2018-09-06 21:19] LABS: ALBUMIN 3.9 g/dl (3.4-5.0); ALK PHOS 137 U/L (45-117); ANION GAP 6 MMOL/L (8-16); BILIRUBIN,TOTAL 0.4 mg/dL (0.2-1); BLOOD UREA NITROGEN 20 mg/dL (7-18); CHLORIDE 108 mmol/L (98-107); CO2 27 mmol/L (21-32); CREATININE 1.4 mg/dL (0.55-1.3); GLUCOSE,RANDOM 234 mg/dL (74-106); POTASSIUM 4.2 mmol/L (3.5-5.1); SGOT/AST 46 U/L (15-37); SGPT/ALT 80 U/L (13-61); SODIUM 141 mmol/L (136-145); TOT PROT 7.8 g/dl (6.4-8.2)
[2018-09-06 21:24] LABS: ACTIVATED PTT 31.6 SECONDS (25.2-36.5)
[2018-09-06 23:24] VITALS: BP 128/78; PULSE 88; TEMP 98.5
--- NOTE | 2018-09-07 14:01 | EKG ---
Test Reason : Blood Pressure : / mmHG Vent. Rate : 065 BPM Atrial Rate : 065 BPM P-R Int : 146 ms QRS Dur : 068 ms QT Int : 402 ms P-R-T Axes : 051 040 079 degrees QTc Int : 418 ms NORMAL SINUS RHYTHM NORMAL ECG WHEN COMPARED WITH ECG OF 01-AUG-2018 00:16, NO SIGNIFICANT CHANGE WAS FOUND Confirmed by NADIRA BERRY MD ([id number]) on 09/07/2018 2:01:10 PM Referred By: Confirmed By:NADIRA BERRY MD
== END 2018-09-06 23:05 | disposition home or self-care (01) ==
LOC: JER 17:57
PROC: 3E0337Z Introduction of Electrolytic and Water Balance Substance into Peripheral Vein, Percutaneous Approach (ICD-10-PCS; principal; 2018-09-06)
DX: E11.65 Type 2 diabetes mellitus with hyperglycemia (principal); E78.00 Pure hypercholesterolemia, unspecified; F03.90 Unspecified dementia, unspecified severity, without behavioral disturbance, psychotic disturbance, mood disturbance, and anxiety; Z87.891 Personal history of nicotine dependence; I10 Essential (primary) hypertension
CPT/HCPCS: 36415; 71046-TC-FY; 76705-TC; 80053; 81003; 81015; 82009; 82550; 82553; 82803; 84484; 85025; 85610; 85730; 87086; 93005; 93010; 96360; 99282-25

== ENCOUNTER 2021-01-01 22:30 | Inpatient (IN) | payer OTHER ==
[2021-01-01 23:54] LABS: BASO % 0.9 % (0-2.0); EOS % 3.5 % (0-4.5); HEMATOCRIT 40.9 % (35.4-49); HEMOGLOBIN 13.4 GM/dL (11.7-16.9); MCH 28.6 pg (25.7-33.7); MCHC 32.7 g/dl (32.0-35.9); MEAN CELL VOLUME 87.4 fl (80-96); MEAN PLT VOLUME 8.9 fl (7.5-11.1); MONO % 7.9 % (3.8-10.2); NEUT % 74.7 % (42.8-82.8); PLATELET COUNT 221 10^3/uL (134-434); RBC 4.68 M/mm3 (4.00-5.60); RDW 14.5 % (11.9-15.9)
[2021-01-02 00:12] LABS: CHLORIDE 113 mmol/L (98-107); SODIUM 142 mmol/L (136-145)
[2021-01-02 00:15] LABS: ALBUMIN 3.7 g/dl (3.4-5.0); ANION GAP 7 MMOL/L (8-16); BLOOD UREA NITROGEN 29.4 mg/dL (7-18); CALCIUM 8.6 mg/dL (8.5-10.1); CO2 23 mmol/L (21-32); GLUCOSE,RANDOM 88 mg/dL (74-106)
[2021-01-02 00:18] LABS: CREATININE 1.8 mg/dL (0.55-1.3); SGOT/AST 29 U/L (15-37); SGPT/ALT 48 U/L (13-61)
[2021-01-02 00:20] LABS: BILIRUBIN,TOTAL 0.5 mg/dL (0.2-1); TOT PROT 7.3 g/dl (6.4-8.2)
[2021-01-02 00:21] LABS: ALK PHOS 80 U/L (45-117)
[2021-01-02] MEDS ORDERED: SODIUM CHLORIDE 0.9% 500 ML INFUS.BAG IV ONE (01:14)
[2021-01-02] MEDS ORDERED: HALOPERIDOL LACTATE 5 MG/ML IM ONE (01:24)
[2021-01-02] MEDS ORDERED: HALOPERIDOL LACTATE 5 MG/ML ONE (01:34)
[2021-01-02] MEDS ORDERED: MIDAZOLAM HCL 2 MG/2 ML SINGLE DOSE VIAL ONE (02:01)
[2021-01-02] MEDS ORDERED: MIDAZOLAM HCL 2 MG/2 ML SINGLE DOSE VIAL IVPUSH ONE (02:04)
[2021-01-02 06:15] VITALS: BMI 23.6
[2021-01-02 06:16] LABS: EOS % 3.2 % (0-4.5); HEMATOCRIT 42.4 % (35.4-49); HEMOGLOBIN 13.7 GM/dL (11.7-16.9); LYMPH % 21.8 % (8-40); MCH 28.5 pg (25.7-33.7); MCHC 32.3 g/dl (32.0-35.9); MEAN CELL VOLUME 88.4 fl (80-96); MEAN PLT VOLUME 9.7 fl (7.5-11.1); MONO % 8.4 % (3.8-10.2); NEUT % 65.6 % (42.8-82.8); PLATELET COUNT 226 10^3/uL (134-434); RBC 4.79 M/mm3 (4.00-5.60); RDW 14.8 % (11.9-15.9); WHITE BLOOD COUNT 8.6 K/mm3 (4.0-10.0)
[2021-01-02 06:28] LABS: BLOOD UREA NITROGEN 28.9 mg/dL (7-18)
[2021-01-02 06:29] LABS: ALBUMIN 3.9 g/dl (3.4-5.0); CALCIUM 8.9 mg/dL (8.5-10.1)
[2021-01-02 06:30] LABS: MAGNESIUM 2.1 mg/dL (1.8-2.4)
[2021-01-02 06:33] LABS: CREATININE 1.4 mg/dL (0.55-1.3); PHOSPHOROUS 3.4 mg/dL (2.5-4.9)
[2021-01-02 06:34] LABS: BILIRUBIN,TOTAL 0.5 mg/dL (0.2-1); TOT PROT 7.2 g/dl (6.4-8.2)
[2021-01-02] MEDS: HEPARIN NA (PORCINE) 5,000 UNITS/ML 1ML VIAL SQ SCH ×3 (06:35→21:06)
[2021-01-02] MEDS: INSULIN SLIDING SCALE (NOVOLOG) 1 VIAL SQ SCH ×4 (06:36→21:06)
[2021-01-02 08:41] LABS: URINE APPEARANCE Clear; URINE BILIRUBIN Negative (NEGATIVE); URINE COLOR Yellow; URINE GLUCOSE (UA) 3+ (NEGATIVE); URINE KETONE Negative (NEGATIVE); URINE LEUK ESTERASE Trace (NEGATIVE); URINE NITRITE Negative (NEGATIVE); URINE PROTEIN 2+ (NEGATIVE); URINE UROBILINOGEN 0.2 mg/dL (0.2-1.0)
[2021-01-02] MEDS ORDERED: PT OWN MED DRAWER 7, Y5N ONE ×4 (08:46→11:13)
[2021-01-02 09:20] LABS: EPI CELLS 2.6 /uL (0-25.1); HYALINE CASTS 0.38 /uL (0-3.1); URINE BACTERIA 150.9 /uL (0-1359); URINE RBC 2.7 /uL (0-23.9); URINE WBC 36.9 /uL (0-25.8); YEAST NON SEEN (NEGATIVE)
[2021-01-02] MEDS: ATENOLOL 50 MG TABLET (FP) PO SCH (09:35)
[2021-01-02] MEDS: NIFEdipine E.R. 90 MG TABLET PO SCH (09:35)
[2021-01-02] MEDS ORDERED: DONEPEZIL HCL 10 MG TABLET (FP) PO SCH ×2 (10:00→22:00)
[2021-01-02] MEDS: EZETIMIBE 10 MG TABLET (FP) PO SCH (11:02)
[2021-01-02] MEDS: DONEPEZIL HCL 10 MG TABLET (FP) PO SCH ×2 (12:49→21:06)
[2021-01-02] MEDS ORDERED: LORazepam 1 MG TABLET PO ONE ×2 (13:24→22:21)
[2021-01-02] MEDS ORDERED: SODIUM CHLORIDE 0.45% 1,000 ML IV SCH (17:45)
[2021-01-02] MEDS ORDERED: INSULIN (NOVOLOG) ASPART 100 UNITS/ML 10ML VIAL ONE (20:42)
[2021-01-02] MEDS: ATORVASTATIN CA 40 MG TABLET (FP) PO SCH (21:06)
[2021-01-02] MEDS: MEMANTINE HCL 10 MG TABLET (FP) PO SCH (21:06)
[2021-01-03] MEDS: INSULIN SLIDING SCALE (NOVOLOG) 1 VIAL SQ SCH ×4 (06:06→20:59)
[2021-01-03] MEDS: HEPARIN NA (PORCINE) 5,000 UNITS/ML 1ML VIAL SQ SCH ×3 (06:07→20:59)
[2021-01-03 08:05] LABS: EOS % 5.9 % (0-4.5); HEMATOCRIT 43.9 % (35.4-49); HEMOGLOBIN 14.6 GM/dL (11.7-16.9); LYMPH % 27.7 % (8-40); MCH 28.8 pg (25.7-33.7); MCHC 33.2 g/dl (32.0-35.9); MEAN CELL VOLUME 86.8 fl (80-96); MEAN PLT VOLUME 9.5 fl (7.5-11.1); MONO % 10.8 % (3.8-10.2); NEUT % 54.6 % (42.8-82.8); PLATELET COUNT 230 10^3/uL (134-434); RBC 5.06 M/mm3 (4.00-5.60); RDW 14.5 % (11.9-15.9); WHITE BLOOD COUNT 6.7 K/mm3 (4.0-10.0)
[2021-01-03 08:38] LABS: ALBUMIN 3.9 g/dl (3.4-5.0); BLOOD UREA NITROGEN 21.6 mg/dL (7-18); CALCIUM 9.3 mg/dL (8.5-10.1); MAGNESIUM 2.3 mg/dL (1.8-2.4)
[2021-01-03 08:41] LABS: CREATININE 1.2 mg/dL (0.55-1.3)
[2021-01-03 08:43] LABS: TOT PROT 7.7 g/dl (6.4-8.2)
[2021-01-03 08:45] LABS: BILIRUBIN,TOTAL 0.8 mg/dL (0.2-1)
[2021-01-03] MEDS: NIFEdipine E.R. 90 MG TABLET PO SCH (10:17)
[2021-01-03] MEDS: ATENOLOL 50 MG TABLET (FP) PO SCH (10:17)
[2021-01-03] MEDS ORDERED: PT OWN MED DRAWER 7, Y5N ONE (10:17)
[2021-01-03] MEDS: EZETIMIBE 10 MG TABLET (FP) PO SCH (10:18)
[2021-01-03] MEDS: MEMANTINE HCL 10 MG TABLET (FP) PO SCH ×2 (10:19→20:59)
[2021-01-03] MEDS: DONEPEZIL HCL 10 MG TABLET (FP) PO SCH ×2 (10:19→20:59)
[2021-01-03] MEDS ORDERED: LORazepam 2 MG TABLET PO PRN (14:41)
[2021-01-03] MEDS ORDERED: LORazepam 1 MG TABLET PO PRN (14:51)
[2021-01-03] MEDS: ATORVASTATIN CA 40 MG TABLET (FP) PO SCH (20:59)
[2021-01-04] MEDS: HEPARIN NA (PORCINE) 5,000 UNITS/ML 1ML VIAL SQ SCH (05:08)
[2021-01-04] MEDS: INSULIN SLIDING SCALE (NOVOLOG) 1 VIAL SQ SCH ×2 (06:06→11:06)
[2021-01-04 07:18] LABS: BASO % 1.3 % (0-2.0); HEMATOCRIT 44.4 % (35.4-49); HEMOGLOBIN 14.3 GM/dL (11.7-16.9); LYMPH % 26.4 % (8-40); MCH 28.4 pg (25.7-33.7); MCHC 32.3 g/dl (32.0-35.9); MEAN CELL VOLUME 88.1 fl (80-96); MEAN PLT VOLUME 10.1 fl (7.5-11.1); MONO % 10.8 % (3.8-10.2); NEUT % 54.5 % (42.8-82.8); PLATELET COUNT 209 10^3/uL (134-434); RBC 5.04 M/mm3 (4.00-5.60); RDW 14.5 % (11.9-15.9); WHITE BLOOD COUNT 6.3 K/mm3 (4.0-10.0)
[2021-01-04 07:43] LABS: ALBUMIN 3.6 g/dl (3.4-5.0); CALCIUM 9.1 mg/dL (8.5-10.1)
[2021-01-04 07:44] LABS: BLOOD UREA NITROGEN 23.9 mg/dL (7-18); MAGNESIUM 2.3 mg/dL (1.8-2.4)
[2021-01-04 07:47] LABS: CREATININE 1.2 mg/dL (0.55-1.3)
[2021-01-04 07:48] LABS: TOT PROT 7.2 g/dl (6.4-8.2)
[2021-01-04] MEDS: NIFEdipine E.R. 90 MG TABLET PO SCH (09:31)
[2021-01-04] MEDS: MEMANTINE HCL 10 MG TABLET (FP) PO SCH (09:31)
[2021-01-04] MEDS: EZETIMIBE 10 MG TABLET (FP) PO SCH (09:31)
[2021-01-04] MEDS: DONEPEZIL HCL 10 MG TABLET (FP) PO SCH (09:31)
[2021-01-04] MEDS: ATENOLOL 50 MG TABLET (FP) PO SCH (09:31)
[2021-01-04 13:53] VITALS: BP 131/65; PULSE 67; TEMP 98.4
== END 2021-01-04 14:23 | disposition home health service (06) | DRG 884 ==
LOC: JER 22:30 → JERBED 01-02 02:05 → J7W 01-02 05:51
PROVIDERS: ADMIT Internal Medicine; ATTEND Nurse Practitioner Acute Care
DX: F03.90 Unspecified dementia, unspecified severity, without behavioral disturbance, psychotic disturbance, mood disturbance, and anxiety (principal); N17.9 Acute kidney failure, unspecified; N18.30 Chronic kidney disease, stage 3 unspecified; E11.9 Type 2 diabetes mellitus without complications; I12.9 Hypertensive chronic kidney disease with stage 1 through stage 4 chronic kidney disease, or unspecified chronic kidney disease; E78.5 Hyperlipidemia, unspecified; E86.0 Dehydration
CPT/HCPCS: 36415; 70450-TC; 71045-TC-FY; 76775-TC; 80053; 81003; 82550; 82553; 82607; 82962; 83735; 84100; 84436; 84443; 84484; 85025; 86780; 93005; 93010; 97116-GP; 97161-GP; 99285-25; C9803; J1644; U0003; U0005

== ENCOUNTER 2021-09-02 14:42 | Emergency (ER) | payer OTHER ==
[2021-09-02 14:53] VITALS: BP 136/54; PULSE 75; TEMP 98.1; BMI 24.3
[2021-09-02] MEDS ORDERED: TETRACAINE 0.5% HCL 0.6ML DROPPER.BOTTLE OD ONE (15:51)
[2021-09-02] MEDS ORDERED: TETRACAINE 0.5% OPHTH SOLN 2 ML BOTTLE ONE (15:53)
[2021-09-02] MEDS ORDERED: FLUORESCEIN NA 1 EA STRIP ONE (15:55)
== END 2021-09-02 17:24 | disposition home or self-care (01) ==
LOC: JER 14:42
DX: H11.31 Conjunctival hemorrhage, right eye (principal)
CPT/HCPCS: 99283-25

== ENCOUNTER 2022-01-12 09:08 | Observation (INO) | payer OTHER ==
[2022-01-12] MEDS: SODIUM CHLORIDE 1,000 ML IV SCH (09:50)
[2022-01-12] MEDS ORDERED: ASPIRIN 325 MG TABLET PO ONE (10:14)
[2022-01-12 10:27] LABS: BASO % 0.9 % (0-2.0); EOS % 5.3 % (0-4.5); HEMATOCRIT 35.1 % (35.4-49); HEMOGLOBIN 11.5 GM/dL (11.7-16.9); MCH 28.3 pg (25.7-33.7); MCHC 32.8 g/dl (32.0-35.9); MEAN CELL VOLUME 86.2 fl (80-96); MEAN PLT VOLUME 9.6 fl (7.5-11.1); MONO % 7.1 % (3.8-10.2); NEUT % 62.7 % (42.8-82.8); PLATELET COUNT 183 10^3/uL (134-434); RBC 4.08 M/mm3 (4.00-5.60); RDW 15.1 % (11.9-15.9); WHITE BLOOD COUNT 5.8 K/mm3 (4.0-10.0)
[2022-01-12] MEDS ORDERED: ASPIRIN 325 MG TABLET ONE (10:27)
[2022-01-12 10:34] LABS: INR 1.07 (0.83-1.09); PROTHROMBIN TIME (PATIENT) 12.3 SEC (9.7-13.0)
[2022-01-12 10:44] LABS: CALCIUM 9.4 mg/dL (8.5-10.1); CHLORIDE 107 mmol/L (98-107); SODIUM 140 mmol/L (136-145)
[2022-01-12 10:46] LABS: ALBUMIN 3.5 g/dl (3.4-5.0); ANION GAP 10 MMOL/L (8-16); BLOOD UREA NITROGEN 31.4 mg/dL (7-18); CO2 23 mmol/L (21-32); GLUCOSE,RANDOM 193 mg/dL (74-106)
[2022-01-12 10:48] LABS: CREATININE 1.3 mg/dL (0.55-1.3); SGOT/AST 35 U/L (15-37); SGPT/ALT 29 U/L (13-61)
[2022-01-12 10:50] LABS: CHOLESTEROL 144 mg/dL (50-200); TOT PROT 7.1 g/dl (6.4-8.2)
[2022-01-12 10:51] LABS: LDL CHOLESTEROL (ONLY SJRH) 76 mg/dL (5-100); TRIGLYCERIDES 80 mg/dL (0-150)
[2022-01-12 10:52] LABS: ALK PHOS 65 U/L (45-117); BILIRUBIN,TOTAL 0.8 mg/dL (0.2-1)
[2022-01-12 10:53] LABS: HDL CHOLESTEROL 48 mg/dL (40-60)
[2022-01-12 11:19] LABS: EPI CELLS 10 /uL (0-25.1); HYALINE CASTS 0 /uL (0-3.1); URINE APPEARANCE CLEAR; URINE BACTERIA 320 /uL (0-1359); URINE BILIRUBIN NEGATIVE (NEGATIVE); URINE COLOR YELLOW; URINE GLUCOSE (UA) NEGATIVE (NEGATIVE); URINE KETONE NEGATIVE (NEGATIVE); URINE LEUK ESTERASE NEGATIVE (NEGATIVE); URINE NITRITE NEGATIVE (NEGATIVE); URINE PROTEIN 3+ (NEGATIVE); URINE RBC 2 /uL (0-23.9); URINE UROBILINOGEN 0.2 mg/dL (0.2-1.0); URINE WBC 36 /uL (0-25.8)
[2022-01-12] MEDS ORDERED: CEFTRIAXONE 1 GM in DEXTROSE 5%-WATER - 100 ML IVPB ONE (13:32)
[2022-01-12] MEDS ORDERED: CEFTRIAXONE 1 GM/50 ML BAG ONE (13:54)
[2022-01-12 15:52] LABS: URINE CRYSTALS 15-20 /hpf; YEAST NONE SEEN (NEGATIVE)
[2022-01-12] MEDS: INSULIN SLIDING SCALE (NOVOLOG) 1 VIAL SQ SCH ×2 (19:57→22:14)
[2022-01-12] MEDS: ATORVASTATIN CA 40 MG TABLET (FP) PO SCH (22:15)
[2022-01-13 00:10] VITALS: BMI 21.4
[2022-01-13] MEDS: INSULIN SLIDING SCALE (NOVOLOG) 1 VIAL SQ SCH ×4 (06:04→22:24)
[2022-01-13] MEDS: SODIUM CHLORIDE 1,000 ML IV SCH (09:45)
[2022-01-13] MEDS ORDERED: ATENOLOL 50 MG TABLET (FP) PO SCH (10:00)
[2022-01-13] MEDS ORDERED: LOSARTAN POTASSIUM 50 MG TABLET PO SCH (10:00)
[2022-01-13] MEDS ORDERED: amLODIPine BESYLATE 10 MG TABLET (FP) PO SCH (10:00)
[2022-01-13] MEDS: EZETIMIBE 10 MG TABLET (FP) PO SCH (10:45)
[2022-01-13] MEDS: CHOLECALCIFEROL (VIT D3) 1,000 UNIT (25 MCG) TABLET PO SCH (10:45)
[2022-01-13] MEDS: LOSARTAN POTASSIUM 50 MG TABLET PO SCH (10:46)
[2022-01-13] MEDS: amLODIPine BESYLATE 10 MG TABLET (FP) PO SCH (10:46)
[2022-01-13] MEDS: ASPIRIN 81 MG CHEWABLE TABLETS PO SCH (10:46)
[2022-01-13] MEDS: INSULIN (LEVEMIR) 100 UNITS/ML UNITS SQ SCH (10:49)
[2022-01-13] MEDS ORDERED: ALPRAZolam 0.25 MG TABLET PO PRN (13:36)
[2022-01-13] MEDS ORDERED: ALPRAZolam 0.25 MG TABLET PO ONE (15:02)
[2022-01-13] MEDS: ATORVASTATIN CA 40 MG TABLET (FP) PO SCH (21:28)
[2022-01-14] MEDS ORDERED: amLODIPine BESYLATE 5 MG TABLET (FP) PO ONE (02:04)
[2022-01-14] MEDS: INSULIN SLIDING SCALE (NOVOLOG) 1 VIAL SQ SCH ×3 (06:23→17:40)
[2022-01-14 07:57] LABS: HEMATOCRIT 37.5 % (35.4-49); HEMOGLOBIN 12.7 GM/dL (11.7-16.9); MCH 28.6 pg (25.7-33.7); MCHC 33.8 g/dl (32.0-35.9); MEAN CELL VOLUME 84.5 fl (80-96); MEAN PLT VOLUME 9.6 fl (7.5-11.1); PLATELET COUNT 210 10^3/uL (134-434); RBC 4.43 M/mm3 (4.00-5.60); RDW 14.6 % (11.9-15.9); WHITE BLOOD COUNT 5.1 K/mm3 (4.0-10.0)
[2022-01-14 08:23] LABS: ALBUMIN 3.7 g/dl (3.4-5.0); BLOOD UREA NITROGEN 18.3 mg/dL (7-18)
[2022-01-14 08:26] LABS: CREATININE 1.1 mg/dL (0.55-1.3)
[2022-01-14 08:27] LABS: BILIRUBIN,TOTAL 0.8 mg/dL (0.2-1)
[2022-01-14] MEDS ORDERED: hydrALAZINE HCL 20 MG/ML VIAL IVPUSH ONE (08:30)
[2022-01-14] MEDS ORDERED: ATENOLOL 25 MG TABLET (FP) PO SCH (09:09)
[2022-01-14] MEDS ORDERED: ENOXAPARIN NA (PORCINE) 30 MG/0.3 ML DISP.SYRIN SQ SCH (10:00)
[2022-01-14] MEDS: ASPIRIN 81 MG CHEWABLE TABLETS PO SCH (10:06)
[2022-01-14] MEDS: LOSARTAN POTASSIUM 50 MG TABLET PO SCH (10:06)
[2022-01-14] MEDS: SODIUM CHLORIDE 1,000 ML IV SCH (10:06)
[2022-01-14] MEDS: CHOLECALCIFEROL (VIT D3) 1,000 UNIT (25 MCG) TABLET PO SCH (10:06)
[2022-01-14] MEDS: amLODIPine BESYLATE 10 MG TABLET (FP) PO SCH (10:06)
[2022-01-14] MEDS: EZETIMIBE 10 MG TABLET (FP) PO SCH (10:07)
[2022-01-14] MEDS: INSULIN (LEVEMIR) 100 UNITS/ML UNITS SQ SCH (10:17)
[2022-01-14] MEDS ORDERED: hydrALAZINE HCL 25 MG TABLET (FP) PO SCH (14:00)
[2022-01-14] MEDS ORDERED: ALPRAZolam 1 MG TABLET PO PRN (14:20)
[2022-01-14 14:32] VITALS: BP 125/67; PULSE 94; TEMP 98.4
[2022-01-14 22:03] LABS: MAGNESIUM 2.1 mg/dL (1.8-2.4)
[2022-01-14 22:07] LABS: PHOSPHOROUS 3.4 mg/dL (2.5-4.9)
== END 2022-01-14 21:10 | disposition home or self-care (01) ==
LOC: JER 09:08 → JERBED 13:09 → J4W 20:19
PROVIDERS: ADMIT Internal Medicine; ATTEND Internal Medicine
PROC: 3E03329 Introduction of Other Anti-infective into Peripheral Vein, Percutaneous Approach (ICD-10-PCS; principal; 2022-01-12)
PROC: 3E023GC Introduction of Other Therapeutic Substance into Muscle, Percutaneous Approach (ICD-10-PCS; 2022-01-12)
PROC: 3E033GC Introduction of Other Therapeutic Substance into Peripheral Vein, Percutaneous Approach (ICD-10-PCS; 2022-01-12)
PROC: 3E0337Z Introduction of Electrolytic and Water Balance Substance into Peripheral Vein, Percutaneous Approach (ICD-10-PCS; 2022-01-12)
PROC: 3E013VG Introduction of Insulin into Subcutaneous Tissue, Percutaneous Approach (ICD-10-PCS; 2022-01-12)
DX: G30.1 Alzheimer's disease with late onset (principal); F02.80 Dementia in other diseases classified elsewhere, unspecified severity, without behavioral disturbance, psychotic disturbance, mood disturbance, and anxiety; E11.9 Type 2 diabetes mellitus without complications; I10 Essential (primary) hypertension; E78.5 Hyperlipidemia, unspecified; N20.0 Calculus of kidney; Z87.891 Personal history of nicotine dependence
CPT/HCPCS: 0241U-QW; 36415; 70450-TC; 70547-TC; 70551-TC; 80053; 80061; 81003; 82550; 82553; 82962; 83036; 83735; 84100; 84484; 85025; 85027; 85610; 85730; 86850; 86900; 86901; 93005; 93010; 93880-TC; 97116-GP; 97162-GP; 99285-25; G0378

== ENCOUNTER 2025-02-24 11:11 | Emergency (ER) | payer OTHER ==
[2025-02-24 11:18] VITALS: BP 132/70; PULSE 66; RESP 18; TEMP 98.5; BMI 21.4
== END 2025-02-24 12:14 | disposition home or self-care (01) ==
LOC: JERFT 11:11 → JER 11:11 → JERFT 12:14
DX: Z48.02 Encounter for removal of sutures (principal)
CPT/HCPCS: 99281-25